=== PATIENT | female | born 1980 | race Caucasian/White ===

== ENCOUNTER 2022-03-19 18:46 | Inpatient (IN) | payer MEDICAID ==
[~2022-03-19] VITALS: Ht 152.4 cm; Wt 75.7 kg
[2022-03-19] MEDS ORDERED: NOREPINEPHRINE 8 MG in DEXT 5% WATER 242 ML IV STA (19:10)
[2022-03-19] MEDS ORDERED: SODIUM CHLORIDE 0.9% 1,000 ML IV ONE (19:15)
[2022-03-19] MEDS ORDERED: ATROPINE SULFATE 0.4MG/ML VIAL IV ONE (19:15)
[2022-03-19] MEDS ORDERED: NOREPINEPHRINE 8MG/250ML PMX 250 ML IV NR (19:15)
[2022-03-19 19:23] LABS: BASOPHILS % 1.3 % (0.0-2.0); EOSINOPHILS % 1.9 % (0.0-5.0); LYMPHOCYTES % 23.5 % (20.0-50.0); MEAN CORPUSCULAR VOLUME 88.3 fL (81.0-99.0); NEUTROPHILS % 69.3 % (40.0-76.0); PLATELET 285 x1000/uL (130-400); RED BLOOD CELL COUNT 1.89 mill/uL (4.2-5.4); RED CELL DISTRIBUTION WIDTH 14.2 % (11.6-14.6)
[2022-03-19 19:30] LABS: HEMATOCRIT. 16.7 % (36.0-48.0); HEMOGLOBIN. 5.5 g/dL (12.0-16.0)
[2022-03-19] MEDS ORDERED: DOPAMINE 800MG/500ML PREMIX 500 ML IV ONE ×2 (19:30→19:45)
[2022-03-19] MEDS ORDERED: CALCIUM CHLORIDE 1GM/10ML SYR IV ONE (19:30)
[2022-03-19 19:32] LABS: CHLORIDE 102 mEq/L (98-107)
[2022-03-19 19:39] LABS: ETHANOL BLOOD < 10 mg/dL
[2022-03-19 20:24] LABS: T4 FREE 1.06 ng/dL (0.76-1.46)
[2022-03-19] MEDS ORDERED: ONDANSETRON HCL 4MG/2ML INJ ONE (20:47)
[2022-03-19] MEDS ORDERED: ONDANSETRON HCL 4MG/2ML INJ IV ONE (21:00)
[2022-03-19] MEDS ORDERED: SODIUM BICARBONATE 8.4% 1 MEQ/ML 50ML SYR IV NR (21:45)
[2022-03-19] MEDS: SODIUM BICARBONATE 150 MEQ in DEXTROSE 5% WATER 1,000 ML IV SCH (23:00)
[2022-03-20] VITALS (45 sets, daily range): BP systolic 39–184; BP diastolic 23–92
[2022-03-20] MEDS ORDERED: CALCIUM GLUCONATE 100MG/ML 10ML VIAL IV ONE (00:15)
[2022-03-20] MEDS ORDERED: DOPAMINE 800MG PREMIX (DOUBLE) 250 ML IV ONE (05:45)
[2022-03-20 07:00] LABS: HEMATOCRIT. 24.6 % (36.0-48.0); HEMOGLOBIN. 8.2 g/dL (12.0-16.0); MEAN CORPUSCULAR HEMOGLOBIN 29.1 pg (28.0-32.0); MEAN CORPUSCULAR VOLUME 87.4 fL (81.0-99.0); MEAN PLATELET VOLUME 9.4 fl (7.4-10.4); PLATELET 295 x1000/uL (130-400); RED BLOOD CELL COUNT 2.81 mill/uL (4.2-5.4); RED CELL DISTRIBUTION WIDTH 15.1 % (11.6-14.6)
[2022-03-20] MEDS: SODIUM BICARBONATE 150 MEQ in DEXTROSE 5% WATER 1,000 ML IV SCH (07:12)
[2022-03-20 07:15] LABS: CHLORIDE 102 mEq/L (98-107)
[2022-03-20 07:21] LABS: CLARITY URINE CLEAR (CLEAR); COLOR URINE YELLOW (YELLOW); KETONES URINE NEGATIVE (NEGATIVE); LEUKOCYTE ESTERASE URINE NEGATIVE (NEGATIVE); NITRITE URINE NEGATIVE (NEGATIVE); OCCULT BLOOD URINE 3+ (NEGATIVE); PROTEIN URINE 4+ (NEGATIVE); SPECIFIC GRAVITY URINE 1.016 (1.005-1.030); UROBILINOGEN URINE 0.2 E.U./dL (0.2-1.0)
[2022-03-20 07:25] LABS: CREATINE KINASE 216 IU/L (26-192)
[2022-03-20 08:10] LABS: *AMPHETAMINES SCREEN URINE NEGATIVE (NEGATIVE); *BARBITURATES SCREEN URINE NEGATIVE (NEGATIVE); *BENZODIAZEPINES SCREEN URINE NEGATIVE (NEGATIVE); *COCAINE SCREEN URINE NEGATIVE (NEGATIVE); CANNABINOID URINE SCREEN NEGATIVE (NEGATIVE); METHADONE URINE SCREEN NEGATIVE (NEGATIVE); OPIATES URINE SCREEN NEGATIVE (NEGATIVE); PHENCYCLIDINE URINE SCREEN NEGATIVE (NEGATIVE)
[2022-03-20] MEDS ORDERED: AMLODIPINE 2.5MG TABLET PO SCH (09:00)
[2022-03-20] MEDS ORDERED: ONDANSETRON HCL 4MG/2ML INJ IV PRN ×2 (09:30→10:30)
[2022-03-20] MEDS ORDERED: DOCUSATE SODIUM 100MG CAPSULE PO PRN (10:30)
[2022-03-20] MEDS ORDERED: HYDROCODONE/ACETAMINOPHEN 5/325MG TABLET PO PRN (10:30)
[2022-03-20] MEDS ORDERED: ACETAMINOPHEN 325MG TABLET PO PRN (10:30)
[2022-03-20] MEDS ORDERED: LORAZEPAM 0.5MG TABLET PO PRN (10:30)
[2022-03-20] MEDS ORDERED: LIDOCAINE HCL 1% 10 MG/ML 10ML VIAL ONE (10:37)
[2022-03-20] MEDS: PANTOPRAZOLE SODIUM 40 MG/VIAL IV SCH (10:40)
[2022-03-20] MEDS ORDERED: NALOXONE HCL 0.4MG/ML VIAL IV PRN (10:45)
[2022-03-20 11:11] LABS: BG BASE EXCESS -8.9 mmol/L (-2.0-2.0); BG CARBOXYHEMOGLOBIN 0.3 % (0.5-1.5); BG FRACTION INSPIRED OXYGEN 40; BG HCO3 ACT 15.3 mmol/L (22.0-26.0); BG METHEMOGLOBIN 0.1 % (0.0-1.5); BG OXYHEMOGLOBIN 89.6 % (94.0-97.0); BG PCO2 26.9 mmHg (35.0-45.0); BG PH 7.372 (7.350-7.450); BG PO2 62.3 mmHg (75.0-100.0); BG SAMPLE SITE RIGHT RADIAL; BG TOTAL HEMOGLOBIN 8.5 g/dL (12.0-18.0); BG VENT MODE NASAL CANNULA
[2022-03-20] MEDS ORDERED: FENTANYL CITRATE/PF 50MCG/ML 2ML VIAL ONE (12:07)
[2022-03-20] MEDS ORDERED: MIDAZOLAM HCL 2 MG/2 ML VIAL ONE (12:07)
[2022-03-20 14:36] LABS: PLATELET ESTIMATE NORMAL
[2022-03-20 15:13] LABS: FERRITIN 61 ng/mL (10-291)
[2022-03-20 15:23] LABS: VITAMIN B12 SERUM 1832 pg/mL (211-911)
[2022-03-20] MEDS ORDERED: FUROSEMIDE 40MG/4ML VIAL IVP NR (15:45)
[2022-03-20 16:03] LABS: PHOSPHORUS 8.5 mg/dL (2.5-4.9)
[2022-03-20] MEDS: GUAIFENESIN/DM 600MG/30MG ER TAB 12HR PO SCH (17:07)
[2022-03-20] MEDS ORDERED: DEXTROSE 50% WATER 50ML SYRINGE IV PRN (17:30)
[2022-03-20] MEDS: INSULIN LISPRO 100 UNITS/ML SUBCUT SCH ×3 (17:40→21:00)
[2022-03-20] MEDS: BLOOD SUGAR DIAGNOSTIC STRIP TEST SCH ×2 (17:41→21:00)
[2022-03-20] MEDS: SEVELAMER CARBONATE 800 MG TABLET PO SCH (19:02)
[2022-03-20 21:46] LABS: BG BASE EXCESS -10.9 mmol/L (-2.0-2.0); BG CARBOXYHEMOGLOBIN 0.3 % (0.5-1.5); BG DEOXYHEMOGLOBIN 19.9 % (0.0-5.0); BG FRACTION INSPIRED OXYGEN 100; BG HCO3 ACT 15.3 mmol/L (22.0-26.0); BG METHEMOGLOBIN 0.5 % (0.0-1.5); BG OXYGEN SATURATION 79.9 % (92.0-98.5); BG OXYHEMOGLOBIN 79.3 % (94.0-97.0); BG PCO2 35.2 mmHg (35.0-45.0); BG PH 7.255 (7.350-7.450); BG PO2 54.2 mmHg (75.0-100.0); BG SAMPLE SITE RIGHT RADIAL; BG TOTAL HEMOGLOBIN 10.6 g/dL (12.0-18.0); BG VENT MODE MASK - NRB
[2022-03-20] MEDS ORDERED: SODIUM BICARBONATE 8.4% 1 MEQ/ML 50ML SYR IV NR ×2 (22:00→23:00)
[2022-03-20 22:54] LABS: BG CARBOXYHEMOGLOBIN 0.3 % (0.5-1.5); BG DEOXYHEMOGLOBIN 11.8 % (0.0-5.0); BG FRACTION INSPIRED OXYGEN 100; BG HCO3 ACT 13.8 mmol/L (22.0-26.0); BG METHEMOGLOBIN 0.3 % (0.0-1.5); BG OXYGEN SATURATION 88.1 % (92.0-98.5); BG OXYHEMOGLOBIN 87.6 % (94.0-97.0); BG PCO2 35.2 mmHg (35.0-45.0); BG PH 7.212 (7.350-7.450); BG PO2 70.6 mmHg (75.0-100.0); BG SAMPLE SITE RH; BG TOTAL HEMOGLOBIN 9.3 g/dL (12.0-18.0); BG VENT MODE MASK - BIPAP
[2022-03-21] VITALS (143 sets, daily range): BP systolic 59–173; BP diastolic 38–106
[2022-03-21 01:18] LABS: BG BASE EXCESS -12.4 mmol/L (-2.0-2.0); BG CARBOXYHEMOGLOBIN 0.3 % (0.5-1.5); BG DEOXYHEMOGLOBIN 15.6 % (0.0-5.0); BG FRACTION INSPIRED OXYGEN 100; BG HCO3 ACT 16.4 mmol/L (22.0-26.0); BG METHEMOGLOBIN 0.1 % (0.0-1.5); BG OXYGEN SATURATION 84.3 % (92.0-98.5); BG PCO2 49.6 mmHg (35.0-45.0); BG PH 7.136 (7.350-7.450); BG SAMPLE SITE LEFT BRACHIAL; BG TOTAL HEMOGLOBIN 10.9 g/dL (12.0-18.0); BG VENT MODE VENT - AC
[2022-03-21] MEDS ORDERED: SODIUM BICARBONATE 8.4% 1 MEQ/ML 50ML SYR IV NR ×2 (01:45→07:15)
[2022-03-21] MEDS: FENTANYL 2500MCG/250ML PMX 250 ML IV PRN (02:31)
[2022-03-21] MEDS: PROPOFOL 10MG/ML 100ML 100 ML IV PRN ×4 (03:01→23:18)
[2022-03-21] MEDS: DOPAMINE 400MG/250ML PREMIX 250 ML IV PRN (05:31)
[2022-03-21] MEDS: GUAIFENESIN/DM 600MG/30MG ER TAB 12HR PO SCH ×2 (06:00→17:39)
[2022-03-21 06:46] LABS: BASOPHILS % 0.2 % (0.0-2.0); HEMATOCRIT. 24.6 % (36.0-48.0); HEMOGLOBIN. 8.3 g/dL (12.0-16.0); LYMPHOCYTES % 7.3 % (20.0-50.0); MEAN CORPUSCULAR HEMOGLOBIN 29.5 pg (28.0-32.0); MEAN CORPUSCULAR VOLUME 87.1 fL (81.0-99.0); MEAN PLATELET VOLUME 9.3 fl (7.4-10.4); NEUTROPHILS % 88.5 % (40.0-76.0); PLATELET 233 x1000/uL (130-400); RED BLOOD CELL COUNT 2.83 mill/uL (4.2-5.4); RED CELL DISTRIBUTION WIDTH 15.5 % (11.6-14.6)
[2022-03-21] MEDS ORDERED: ETOMIDATE 2MG/ML 10ML VIAL IV ONE (06:50)
[2022-03-21] MEDS ORDERED: VECURONIUM BROMIDE 10 MG/VIAL IV ONE (06:50)
[2022-03-21] MEDS ORDERED: ATROPINE SULFATE 1MG/10ML SYR ONE (06:50)
[2022-03-21 06:53] LABS: CHLORIDE 99 mEq/L (98-107)
[2022-03-21 06:54] LABS: INR 1.4; PROTHROMBIN TIME 14.6 sec (9.6-11.0)
[2022-03-21] MEDS: BLOOD SUGAR DIAGNOSTIC STRIP TEST SCH ×4 (06:54→17:38)
[2022-03-21] MEDS ORDERED: VANCOMYCIN 1G PREMIX 200 ML IV SCH (07:00)
[2022-03-21] MEDS ORDERED: PIPERACILLIN/TAZOBACTAM 2.25 G in DEXTROSE 5% WATER 50 ML IV SCH (07:00)
[2022-03-21] MEDS: INSULIN LISPRO 100 UNITS/ML SUBCUT SCH ×3 (07:00→17:38)
[2022-03-21 07:06] LABS: HEPATITIS B SURFACE AB < 3.1 mIU/mL
[2022-03-21 07:08] LABS: CREATINE KINASE 605 IU/L (26-192)
[2022-03-21 07:12] LABS: PHOSPHORUS 9.5 mg/dL (2.5-4.9)
[2022-03-21 07:17] LABS: HEPATITIS B SURFACE ANTIGEN NEGATIVE
[2022-03-21] MEDS ORDERED: HEPARIN 1000 UNITS/ML 10ML ONE (08:25)
[2022-03-21] MEDS ORDERED: LIDOCAINE HCL 1% 10 MG/ML 10ML VIAL ONE (08:25)
[2022-03-21] MEDS: IPRATROPIUM/ALBUTEROL 0.5-3(2.5)MG/3ML NEB HHN PRN ×3 (08:37→16:15)
[2022-03-21] MEDS: SEVELAMER CARBONATE 800 MG TABLET PO SCH ×3 (08:44→17:39)
[2022-03-21] MEDS: PANTOPRAZOLE SODIUM 40 MG/VIAL IV SCH (08:44)
[2022-03-21] MEDS ORDERED: VANCOMYCIN 1250MG in DEXTROSE 5% WATER 250ML IV NR (09:00)
[2022-03-21 09:30] LABS: BG BASE EXCESS -2.4 mmol/L (-2.0-2.0); BG CARBOXYHEMOGLOBIN 0.3 % (0.5-1.5); BG DEOXYHEMOGLOBIN 2.5 % (0.0-5.0); BG FRACTION INSPIRED OXYGEN 100; BG HCO3 ACT 19.8 mmol/L (22.0-26.0); BG METHEMOGLOBIN 0.2 % (0.0-1.5); BG OXYGEN SATURATION 97.5 % (92.0-98.5); BG PCO2 25.2 mmHg (35.0-45.0); BG PH 7.514 (7.350-7.450); BG PO2 115.1 mmHg (75.0-100.0); BG SAMPLE SITE RIGHT RADIAL; BG TOTAL HEMOGLOBIN 8.1 g/dL (12.0-18.0); BG VENT MODE VENT - AC
[2022-03-21] MEDS ORDERED: MANNITOL 12.5G (25%) VIAL 50ML IV NR (10:00)
[2022-03-21] MEDS: PIPERACILLIN/TAZOBACTAM 3.375 G in DEXTROSE 5% WATER 50 ML IV SCH ×2 (10:16→21:43)
[2022-03-21 20:35] LABS: BG BASE EXCESS 2.1 mmol/L (-2.0-2.0); BG CARBOXYHEMOGLOBIN 0.3 % (0.5-1.5); BG DEOXYHEMOGLOBIN 1.3 % (0.0-5.0); BG FRACTION INSPIRED OXYGEN 100; BG HCO3 ACT 26.8 mmol/L (22.0-26.0); BG METHEMOGLOBIN 0.4 % (0.0-1.5); BG OXYGEN SATURATION 98.7 % (92.0-98.5); BG PCO2 42.5 mmHg (35.0-45.0); BG PH 7.418 (7.350-7.450); BG PO2 239.7 mmHg (75.0-100.0); BG SAMPLE SITE LEFT BRACHIAL
[2022-03-22] VITALS (99 sets, daily range): BP systolic 83–142; BP diastolic 43–86
[2022-03-22] MEDS: BLOOD SUGAR DIAGNOSTIC STRIP TEST SCH ×4 (00:02→17:21)
[2022-03-22] MEDS ORDERED: PROPOFOL 10MG/ML 100ML 100 ML IV PRN (03:00)
[2022-03-22] MEDS: DOPAMINE 400MG/250ML PREMIX 250 ML IV PRN (03:02)
[2022-03-22] MEDS: FENTANYL 2500MCG/250ML PMX 250 ML IV PRN ×2 (03:04→14:31)
[2022-03-22] MEDS: GUAIFENESIN/DM 600MG/30MG ER TAB 12HR PO SCH ×2 (05:54→17:21)
[2022-03-22 05:55] LABS: HEMATOCRIT. 22.1 % (36.0-48.0); HEMOGLOBIN. 7.3 g/dL (12.0-16.0); MEAN CORPUSCULAR VOLUME 87.9 fL (81.0-99.0); MEAN PLATELET VOLUME 9.4 fl (7.4-10.4); PLATELET 194 x1000/uL (130-400); RED BLOOD CELL COUNT 2.51 mill/uL (4.2-5.4); RED CELL DISTRIBUTION WIDTH 15.6 % (11.6-14.6)
[2022-03-22] MEDS: PROPOFOL 10MG/ML 100ML 100 ML IV PRN ×3 (05:56→22:21)
[2022-03-22] MEDS: INSULIN LISPRO 100 UNITS/ML SUBCUT SCH ×4 (06:00→17:21)
[2022-03-22 06:11] LABS: PHOSPHORUS 7.7 mg/dL (2.5-4.9)
[2022-03-22] MEDS: PANTOPRAZOLE SODIUM 40 MG/VIAL IV SCH (08:38)
[2022-03-22] MEDS: SEVELAMER CARBONATE 800 MG TABLET PO SCH ×3 (08:38→17:22)
[2022-03-22] MEDS: PIPERACILLIN/TAZOBACTAM 3.375 G in DEXTROSE 5% WATER 50 ML IV SCH ×2 (08:38→21:26)
[2022-03-22] MEDS: MIDODRINE HCL 5MG TABLET PO SCH ×3 (10:03→22:14)
[2022-03-22 11:03] LABS: PLATELET ESTIMATE NORMAL
[2022-03-22 12:05] LABS: BG BASE EXCESS 1.6 mmol/L (-2.0-2.0); BG CARBOXYHEMOGLOBIN 0.3 % (0.5-1.5); BG DEOXYHEMOGLOBIN 3.5 % (0.0-5.0); BG HCO3 ACT 26.7 mmol/L (22.0-26.0); BG METHEMOGLOBIN 0.5 % (0.0-1.5); BG OXYGEN SATURATION 96.5 % (92.0-98.5); BG OXYHEMOGLOBIN 95.7 % (94.0-97.0); BG PCO2 44.8 mmHg (35.0-45.0); BG PH 7.393 (7.350-7.450); BG PO2 98.1 mmHg (75.0-100.0); BG SAMPLE SITE RIGHT BRACHIAL; BG TOTAL HEMOGLOBIN 7.9 g/dL (12.0-18.0); BG VENT MODE VENT - AC
[2022-03-22] MEDS: IPRATROPIUM/ALBUTEROL 0.5-3(2.5)MG/3ML NEB HHN SCH ×2 (13:44→20:35)
[2022-03-22] MEDS ORDERED: VANCOMYCIN 1G PREMIX 200 ML IV NR (21:00)
[2022-03-23] VITALS (91 sets, daily range): BP systolic 94–145; BP diastolic 60–92
[2022-03-23] MEDS: IPRATROPIUM/ALBUTEROL 0.5-3(2.5)MG/3ML NEB HHN SCH ×6 (00:55→20:35)
[2022-03-23] MEDS: PROPOFOL 10MG/ML 100ML 100 ML IV PRN ×4 (05:19→22:51)
[2022-03-23] MEDS: MIDODRINE HCL 5MG TABLET PO SCH ×3 (05:51→21:21)
[2022-03-23] MEDS: GUAIFENESIN/DM 600MG/30MG ER TAB 12HR PO SCH ×2 (05:51→17:19)
[2022-03-23] MEDS: BLOOD SUGAR DIAGNOSTIC STRIP TEST SCH ×4 (05:52→17:20)
[2022-03-23] MEDS: INSULIN LISPRO 100 UNITS/ML SUBCUT SCH ×4 (05:52→17:20)
[2022-03-23] MEDS: FENTANYL 2500MCG/250ML PMX 250 ML IV PRN (05:56)
[2022-03-23 06:08] LABS: HEMATOCRIT. 21.8 % (36.0-48.0); HEMOGLOBIN. 7.3 g/dL (12.0-16.0); MEAN CORPUSCULAR HEMOGLOBIN 29.5 pg (28.0-32.0); MEAN CORPUSCULAR VOLUME 87.8 fL (81.0-99.0); MEAN PLATELET VOLUME 9.4 fl (7.4-10.4); PLATELET 184 x1000/uL (130-400); RED BLOOD CELL COUNT 2.48 mill/uL (4.2-5.4); RED CELL DISTRIBUTION WIDTH 16.1 % (11.6-14.6)
[2022-03-23] MEDS: PANTOPRAZOLE SODIUM 40 MG/VIAL IV SCH (08:15)
[2022-03-23] MEDS: SEVELAMER CARBONATE 800 MG TABLET PO SCH ×3 (08:15→17:20)
[2022-03-23] MEDS: PIPERACILLIN/TAZOBACTAM 3.375 G in DEXTROSE 5% WATER 50 ML IV SCH ×2 (08:25→21:20)
[2022-03-23 09:09] LABS: PLATELET ESTIMATE NORMAL
[2022-03-23] MEDS ORDERED: VANCOMYCIN 1G PREMIX 200 ML IV NR (10:00)
[2022-03-23 10:35] LABS: BG BASE EXCESS -1.3 mmol/L (-2.0-2.0); BG CARBOXYHEMOGLOBIN 0.3 % (0.5-1.5); BG DEOXYHEMOGLOBIN 4.4 % (0.0-5.0); BG FRACTION INSPIRED OXYGEN 40; BG HCO3 ACT 24.1 mmol/L (22.0-26.0); BG METHEMOGLOBIN 0.8 % (0.0-1.5); BG OXYGEN SATURATION 95.6 % (92.0-98.5); BG OXYHEMOGLOBIN 94.5 % (94.0-97.0); BG PCO2 43.2 mmHg (35.0-45.0); BG PH 7.364 (7.350-7.450); BG PO2 90.6 mmHg (75.0-100.0); BG SAMPLE SITE RIGHT RADIAL; BG TOTAL HEMOGLOBIN 8.3 g/dL (12.0-18.0); BG VENT MODE VENT - AC
[2022-03-23 13:06] LABS: ANTI-DNA DOUBLE STRANDED QUANT 2 IU/mL (0-9); ANTI-NUCLEAR ANTIBODIES DIRECT Positive (Negative)
[2022-03-23] MEDS: DOPAMINE 400MG/250ML PREMIX 250 ML IV PRN (22:54)
[2022-03-24] VITALS (92 sets, daily range): BP systolic 83–171; BP diastolic 27–113
[2022-03-24] MEDS: IPRATROPIUM/ALBUTEROL 0.5-3(2.5)MG/3ML NEB HHN SCH ×6 (00:12→20:22)
[2022-03-24] MEDS: FENTANYL 2500MCG/250ML PMX 250 ML IV PRN ×2 (01:21→20:18)
[2022-03-24 05:14] LABS: BASOPHILS % 0.7 % (0.0-2.0); EOSINOPHILS % 5.9 % (0.0-5.0); HEMATOCRIT. 22.1 % (36.0-48.0); HEMOGLOBIN. 7.2 g/dL (12.0-16.0); LYMPHOCYTES % 8.9 % (20.0-50.0); MEAN CORPUSCULAR HEMOGLOBIN 29.2 pg (28.0-32.0); MEAN CORPUSCULAR VOLUME 89.2 fL (81.0-99.0); MONOCYTES % 3.7 % (2.0-8.0); NEUTROPHILS % 80.8 % (40.0-76.0); PLATELET 169 x1000/uL (130-400); RED BLOOD CELL COUNT 2.48 mill/uL (4.2-5.4); RED CELL DISTRIBUTION WIDTH 15.6 % (11.6-14.6)
[2022-03-24 05:24] LABS: PHOSPHORUS 6.5 mg/dL (2.5-4.9)
[2022-03-24] MEDS: PROPOFOL 10MG/ML 100ML 100 ML IV PRN ×3 (05:31→20:15)
[2022-03-24] MEDS: INSULIN LISPRO 100 UNITS/ML SUBCUT SCH ×4 (06:00→17:33)
[2022-03-24] MEDS: GUAIFENESIN/DM 600MG/30MG ER TAB 12HR PO SCH ×2 (06:37→17:34)
[2022-03-24] MEDS: MIDODRINE HCL 5MG TABLET PO SCH ×3 (06:38→21:27)
[2022-03-24] MEDS: BLOOD SUGAR DIAGNOSTIC STRIP TEST SCH ×4 (06:39→17:33)
[2022-03-24] MEDS: FOLIC ACID/VITAMIN B COMP W-C TABLET PO SCH (08:03)
[2022-03-24] MEDS: PANTOPRAZOLE SODIUM 40 MG/VIAL IV SCH (08:04)
[2022-03-24] MEDS: SEVELAMER CARBONATE 800 MG TABLET PO SCH (08:04)
[2022-03-24] MEDS: PIPERACILLIN/TAZOBACTAM 3.375 G in DEXTROSE 5% WATER 50 ML IV SCH ×2 (08:05→21:28)
[2022-03-24 09:06] LABS: ANTI-MYELOPEROXIDASE AB 1.6 units (0.0-0.9); ANTI-PROTEINASE 3 ABS < 0.2 units (0.0-0.9)
[2022-03-24] MEDS: CALCIUM ACETATE 667MG CAPSULE PO SCH ×3 (09:14→17:34)
[2022-03-24 10:58] LABS: BG BASE EXCESS 0.3 mmol/L (-2.0-2.0); BG CARBOXYHEMOGLOBIN 0.3 % (0.5-1.5); BG FRACTION INSPIRED OXYGEN 40; BG HCO3 ACT 24.4 mmol/L (22.0-26.0); BG METHEMOGLOBIN 0.4 % (0.0-1.5); BG OXYHEMOGLOBIN 98.3 % (94.0-97.0); BG PCO2 36.7 mmHg (35.0-45.0); BG PH 7.441 (7.350-7.450); BG PO2 186.6 mmHg (75.0-100.0); BG SAMPLE SITE LEFT RADIAL; BG TOTAL HEMOGLOBIN 6.4 g/dL (12.0-18.0); BG VENT MODE VENT - AC
[2022-03-24 14:29] LABS: BG BASE EXCESS -4.9 mmol/L (-2.0-2.0); BG DEOXYHEMOGLOBIN 1.5 % (0.0-5.0); BG FRACTION INSPIRED OXYGEN 40; BG HCO3 ACT 19.9 mmol/L (22.0-26.0); BG METHEMOGLOBIN 0.3 % (0.0-1.5); BG OXYGEN SATURATION 98.5 % (92.0-98.5); BG OXYHEMOGLOBIN 98.2 % (94.0-97.0); BG PCO2 35.4 mmHg (35.0-45.0); BG PH 7.367 (7.350-7.450); BG PO2 148.4 mmHg (75.0-100.0); BG SAMPLE SITE RIGHT RADIAL; BG TOTAL HEMOGLOBIN 8.8 g/dL (12.0-18.0); BG VENT MODE VENT - CPAP
[2022-03-24] MEDS: ACETAMINOPHEN 325MG TABLET PO PRN (21:29)
[2022-03-25] VITALS (70 sets, daily range): BP systolic 101–145; BP diastolic 50–105
[2022-03-25] MEDS: IPRATROPIUM/ALBUTEROL 0.5-3(2.5)MG/3ML NEB HHN SCH ×6 (00:37→20:24)
[2022-03-25] MEDS: PROPOFOL 10MG/ML 100ML 100 ML IV PRN ×3 (04:20→20:48)
[2022-03-25 05:35] LABS: BASOPHILS % 1.1 % (0.0-2.0); EOSINOPHILS % 6.1 % (0.0-5.0); LYMPHOCYTES % 10.7 % (20.0-50.0); MEAN CORPUSCULAR HEMOGLOBIN 29.4 pg (28.0-32.0); MEAN CORPUSCULAR VOLUME 89.7 fL (81.0-99.0); MEAN PLATELET VOLUME 8.9 fl (7.4-10.4); MONOCYTES % 8.3 % (2.0-8.0); NEUTROPHILS % 73.8 % (40.0-76.0); PLATELET 173 x1000/uL (130-400); RED BLOOD CELL COUNT 2.29 mill/uL (4.2-5.4); RED CELL DISTRIBUTION WIDTH 15.4 % (11.6-14.6)
[2022-03-25 05:51] LABS: HEMOGLOBIN. 6.7 g/dL (12.0-16.0)
[2022-03-25 05:52] LABS: HEMATOCRIT. 20.6 % (36.0-48.0)
[2022-03-25] MEDS: INSULIN LISPRO 100 UNITS/ML SUBCUT SCH ×4 (06:00→17:59)
[2022-03-25] MEDS: BLOOD SUGAR DIAGNOSTIC STRIP TEST SCH ×4 (06:00→17:59)
[2022-03-25] MEDS: MIDODRINE HCL 5MG TABLET PO SCH ×3 (06:40→21:15)
[2022-03-25] MEDS: GUAIFENESIN/DM 600MG/30MG ER TAB 12HR PO SCH ×2 (06:44→18:02)
[2022-03-25] MEDS: PIPERACILLIN/TAZOBACTAM 3.375 G in DEXTROSE 5% WATER 50 ML IV SCH ×2 (08:49→20:52)
[2022-03-25] MEDS: CALCIUM ACETATE 667MG CAPSULE PO SCH ×3 (08:50→18:02)
[2022-03-25] MEDS: FOLIC ACID/VITAMIN B COMP W-C TABLET PO SCH (08:50)
[2022-03-25] MEDS ORDERED: MIDODRINE HCL 5MG TABLET PO SCH (09:00)
[2022-03-25] MEDS: PANTOPRAZOLE SODIUM 40 MG/VIAL IV SCH (09:32)
[2022-03-25] MEDS: LEVOTHYROXINE SODIUM 50MCG TABLET NG SCH (10:10)
[2022-03-25 11:54] LABS: BG BASE EXCESS -1.1 mmol/L (-2.0-2.0); BG CARBOXYHEMOGLOBIN 0.2 % (0.5-1.5); BG DEOXYHEMOGLOBIN 1.7 % (0.0-5.0); BG FRACTION INSPIRED OXYGEN 40; BG HCO3 ACT 23.8 mmol/L (22.0-26.0); BG METHEMOGLOBIN 0.6 % (0.0-1.5); BG OXYGEN SATURATION 98.3 % (92.0-98.5); BG OXYHEMOGLOBIN 97.5 % (94.0-97.0); BG PCO2 40.4 mmHg (35.0-45.0); BG PH 7.388 (7.350-7.450); BG PO2 158.5 mmHg (75.0-100.0); BG SAMPLE SITE RIGHT BRACHIAL; BG TOTAL HEMOGLOBIN 6.8 g/dL (12.0-18.0); BG VENT MODE VENT - AC
[2022-03-25 13:12] LABS: ATYPICAL P-ANCA <1:20 titer (Neg:<1:20); CYTOPLASMIC C-ANCA <1:20 titer (Neg:<1:20)
[2022-03-25] MEDS ORDERED: PROPOFOL 10MG/ML 100ML 100 ML IV PRN (16:30)
[2022-03-25] MEDS: METHYLPREDNISOLONE SOD SUCC 40 MG/ML VIAL IV SCH (18:02)
[2022-03-25] MEDS: FENTANYL 2500MCG/250ML PMX 250 ML IV PRN (20:49)
[2022-03-26] VITALS (56 sets, daily range): BP systolic 94–189; BP diastolic 59–109
[2022-03-26] MEDS: IPRATROPIUM/ALBUTEROL 0.5-3(2.5)MG/3ML NEB HHN SCH ×6 (00:34→20:38)
[2022-03-26] MEDS: BLOOD SUGAR DIAGNOSTIC STRIP TEST SCH ×4 (00:34→17:14)
[2022-03-26] MEDS: PROPOFOL 10MG/ML 100ML 100 ML IV PRN (03:41)
[2022-03-26] MEDS: INSULIN LISPRO 100 UNITS/ML SUBCUT SCH ×4 (05:13→17:14)
[2022-03-26] MEDS: METHYLPREDNISOLONE SOD SUCC 40 MG/ML VIAL IV SCH ×2 (05:14→17:19)
[2022-03-26] MEDS: MIDODRINE HCL 5MG TABLET PO SCH ×3 (05:15→21:21)
[2022-03-26] MEDS: GUAIFENESIN/DM 600MG/30MG ER TAB 12HR PO SCH ×2 (05:15→19:07)
[2022-03-26 05:51] LABS: HEMATOCRIT. 29.8 % (36.0-48.0); HEMOGLOBIN. 9.9 g/dL (12.0-16.0); MEAN CORPUSCULAR HEMOGLOBIN 29.7 pg (28.0-32.0); MEAN CORPUSCULAR VOLUME 89.1 fL (81.0-99.0); MEAN PLATELET VOLUME 8.8 fl (7.4-10.4); PLATELET 194 x1000/uL (130-400); RED BLOOD CELL COUNT 3.34 mill/uL (4.2-5.4); RED CELL DISTRIBUTION WIDTH 14.8 % (11.6-14.6)
[2022-03-26 06:01] LABS: CHLORIDE 101 mEq/L (98-107)
[2022-03-26 07:38] LABS: BG BASE EXCESS -5.4 mmol/L (-2.0-2.0); BG CARBOXYHEMOGLOBIN 0.3 % (0.5-1.5); BG DEOXYHEMOGLOBIN 2.8 % (0.0-5.0); BG FRACTION INSPIRED OXYGEN 40; BG HCO3 ACT 20.7 mmol/L (22.0-26.0); BG METHEMOGLOBIN 0.3 % (0.0-1.5); BG OXYGEN SATURATION 97.2 % (92.0-98.5); BG OXYHEMOGLOBIN 96.6 % (94.0-97.0); BG PCO2 42.9 mmHg (35.0-45.0); BG PH 7.302 (7.350-7.450); BG PO2 113.4 mmHg (75.0-100.0); BG SAMPLE SITE RIGHT RADIAL; BG TOTAL HEMOGLOBIN 10.6 g/dL (12.0-18.0); BG VENT MODE VENT - SIMV
[2022-03-26] MEDS: LEVOTHYROXINE SODIUM 50MCG TABLET NG SCH (07:50)
[2022-03-26] MEDS: CALCIUM ACETATE 667MG CAPSULE PO SCH ×3 (08:20→17:19)
[2022-03-26] MEDS: FOLIC ACID/VITAMIN B COMP W-C TABLET PO SCH (08:20)
[2022-03-26 08:23] LABS: PLATELET ESTIMATE NORMAL
[2022-03-26] MEDS: PANTOPRAZOLE SODIUM 40 MG/VIAL IV SCH (09:05)
[2022-03-26] MEDS ORDERED: CEFAZOLIN SODIUM 1000MG/VIAL ONE (09:51)
[2022-03-26] MEDS ORDERED: GENTAMICIN SULF 40MG/ML 2ML VIAL ONE (09:51)
[2022-03-26] MEDS ORDERED: GENTAMICIN/NS IRRIGATION 500 ML IR ONE (09:51)
[2022-03-26] MEDS ORDERED: LIDOCAINE HCL 1% 10 MG/ML 10ML VIAL ONE (09:51)
[2022-03-26] MEDS ORDERED: PROPOFOL 10MG/ML 100ML 100 ML IV ONE (10:47)
[2022-03-26] MEDS ORDERED: MIDAZOLAM HCL 2 MG/2 ML VIAL ONE (10:54)
[2022-03-26] MEDS ORDERED: IODIXANOL 320MG/ML 100 ML BOTTLE IV ONE (11:40)
[2022-03-26] MEDS ORDERED: HYDROCODONE/ACETAMINOPHEN 5/325MG TABLET PO PRN (13:45)
[2022-03-26] MEDS ORDERED: NALOXONE HCL 0.4MG/ML VIAL IV PRN (14:00)
[2022-03-26] MEDS ORDERED: VANCOMYCIN 750MG PREMIX 150 ML IV NR (18:00)
[2022-03-27] VITALS (29 sets, daily range): BP systolic 119–162; BP diastolic 79–132
[2022-03-27] MEDS: BLOOD SUGAR DIAGNOSTIC STRIP TEST SCH ×4 (00:23→17:27)
[2022-03-27] MEDS: IPRATROPIUM/ALBUTEROL 0.5-3(2.5)MG/3ML NEB HHN SCH ×6 (00:58→20:45)
[2022-03-27] MEDS: MIDODRINE HCL 5MG TABLET PO SCH ×3 (04:56→21:05)
[2022-03-27] MEDS: GUAIFENESIN/DM 600MG/30MG ER TAB 12HR PO SCH ×2 (05:07→17:27)
[2022-03-27] MEDS: INSULIN LISPRO 100 UNITS/ML SUBCUT SCH ×4 (05:31→17:27)
[2022-03-27] MEDS: METHYLPREDNISOLONE SOD SUCC 40 MG/ML VIAL IV SCH ×2 (05:34→17:27)
[2022-03-27 06:01] LABS: BASOPHILS % 0.4 % (0.0-2.0); EOSINOPHILS % 0.1 % (0.0-5.0); HEMATOCRIT. 34.2 % (36.0-48.0); HEMOGLOBIN. 11.2 g/dL (12.0-16.0); LYMPHOCYTES % 10.6 % (20.0-50.0); MEAN CORPUSCULAR HEMOGLOBIN 29.4 pg (28.0-32.0); MEAN CORPUSCULAR VOLUME 89.7 fL (81.0-99.0); MEAN PLATELET VOLUME 8.9 fl (7.4-10.4); MONOCYTES % 10.5 % (2.0-8.0); NEUTROPHILS % 78.4 % (40.0-76.0); PLATELET 273 x1000/uL (130-400); RED BLOOD CELL COUNT 3.81 mill/uL (4.2-5.4)
[2022-03-27] MEDS: PANTOPRAZOLE SODIUM 40 MG/VIAL IV SCH (08:05)
[2022-03-27] MEDS: CALCIUM ACETATE 667MG CAPSULE PO SCH ×3 (08:05→17:31)
[2022-03-27] MEDS: FOLIC ACID/VITAMIN B COMP W-C TABLET PO SCH (08:05)
[2022-03-27] MEDS: LEVOTHYROXINE SODIUM 50MCG TABLET NG SCH (08:05)
[2022-03-27 10:30] LABS: BG BASE EXCESS -7.9 mmol/L (-2.0-2.0); BG CARBOXYHEMOGLOBIN 0.2 % (0.5-1.5); BG DEOXYHEMOGLOBIN 2.5 % (0.0-5.0); BG HCO3 ACT 16.4 mmol/L (22.0-26.0); BG METHEMOGLOBIN 0.9 % (0.0-1.5); BG OXYGEN SATURATION 97.5 % (92.0-98.5); BG OXYHEMOGLOBIN 96.4 % (94.0-97.0); BG PCO2 29.9 mmHg (35.0-45.0); BG PH 7.356 (7.350-7.450); BG PO2 132.4 mmHg (75.0-100.0); BG SAMPLE SITE RIGHT RADIAL; BG TOTAL HEMOGLOBIN 12.1 g/dL (12.0-18.0); BG VENT MODE MASK - CPAP
[2022-03-27] MEDS ORDERED: FAMO20TA8 PO (12:35)
[2022-03-28] VITALS (16 sets, daily range): BP systolic 114–149; BP diastolic 75–99
[2022-03-28] MEDS: BLOOD SUGAR DIAGNOSTIC STRIP TEST SCH ×4 (00:35→18:07)
[2022-03-28] MEDS: IPRATROPIUM/ALBUTEROL 0.5-3(2.5)MG/3ML NEB HHN SCH ×6 (00:48→21:12)
[2022-03-28] MEDS: INSULIN LISPRO 100 UNITS/ML SUBCUT SCH ×4 (05:51→18:00)
[2022-03-28] MEDS: MIDODRINE HCL 5MG TABLET PO SCH ×3 (06:03→21:56)
[2022-03-28] MEDS: GUAIFENESIN/DM 600MG/30MG ER TAB 12HR PO SCH ×2 (06:03→18:25)
[2022-03-28] MEDS: ACETAMINOPHEN 325MG TABLET PO PRN ×2 (06:03→18:06)
[2022-03-28] MEDS: METHYLPREDNISOLONE SOD SUCC 40 MG/ML VIAL IV SCH ×2 (06:03→18:06)
[2022-03-28 06:58] LABS: BASOPHILS % 0.4 % (0.0-2.0); EOSINOPHILS % 0.1 % (0.0-5.0); HEMATOCRIT. 29.7 % (36.0-48.0); HEMOGLOBIN. 9.8 g/dL (12.0-16.0); MEAN CORPUSCULAR HEMOGLOBIN 29.8 pg (28.0-32.0); MEAN CORPUSCULAR VOLUME 90.3 fL (81.0-99.0); MEAN PLATELET VOLUME 8.7 fl (7.4-10.4); MONOCYTES % 10.4 % (2.0-8.0); NEUTROPHILS % 79.1 % (40.0-76.0); PLATELET 246 x1000/uL (130-400); RED BLOOD CELL COUNT 3.28 mill/uL (4.2-5.4); RED CELL DISTRIBUTION WIDTH 14.6 % (11.6-14.6)
[2022-03-28 07:18] LABS: INR 1.1; PROTHROMBIN TIME 11.3 sec (9.6-11.0)
[2022-03-28] MEDS: LEVOTHYROXINE SODIUM 50MCG TABLET NG SCH (08:22)
[2022-03-28] MEDS: PANTOPRAZOLE SODIUM 40 MG/VIAL IV SCH (08:22)
[2022-03-28] MEDS: CALCIUM ACETATE 667MG CAPSULE PO SCH ×3 (08:22→18:06)
[2022-03-28] MEDS: FOLIC ACID/VITAMIN B COMP W-C TABLET PO SCH (08:22)
[2022-03-29] VITALS: BP 133/88
[2022-03-29] MEDS: BLOOD SUGAR DIAGNOSTIC STRIP TEST SCH ×4 (00:30→18:46)
[2022-03-29 04:00] VITALS: BP 135/99
[2022-03-29] MEDS: IPRATROPIUM/ALBUTEROL 0.5-3(2.5)MG/3ML NEB HHN SCH ×5 (04:47→21:10)
[2022-03-29] MEDS: MIDODRINE HCL 5MG TABLET PO SCH ×3 (05:32→22:00)
[2022-03-29] MEDS: GUAIFENESIN/DM 600MG/30MG ER TAB 12HR PO SCH ×2 (05:38→19:07)
[2022-03-29] MEDS: METHYLPREDNISOLONE SOD SUCC 40 MG/ML VIAL IV SCH (05:38)
[2022-03-29] MEDS: INSULIN LISPRO 100 UNITS/ML SUBCUT SCH ×4 (06:00→18:00)
[2022-03-29 06:58] LABS: BASOPHILS % 0.6 % (0.0-2.0); EOSINOPHILS % 0.2 % (0.0-5.0); HEMATOCRIT. 28.7 % (36.0-48.0); HEMOGLOBIN. 9.6 g/dL (12.0-16.0); LYMPHOCYTES % 10.4 % (20.0-50.0); MEAN CORPUSCULAR HEMOGLOBIN 30.2 pg (28.0-32.0); MEAN PLATELET VOLUME 9.1 fl (7.4-10.4); MONOCYTES % 9.3 % (2.0-8.0); NEUTROPHILS % 79.5 % (40.0-76.0); PLATELET 249 x1000/uL (130-400); RED BLOOD CELL COUNT 3.19 mill/uL (4.2-5.4); RED CELL DISTRIBUTION WIDTH 15.1 % (11.6-14.6)
[2022-03-29] MEDS: PANTOPRAZOLE SODIUM 40 MG/VIAL IV SCH (09:25)
[2022-03-29] MEDS: FAMOTIDINE 20MG TABLET PO SCH (09:25)
[2022-03-29] MEDS: LEVOTHYROXINE SODIUM 50MCG TABLET NG SCH (09:25)
[2022-03-29] MEDS: CALCIUM ACETATE 667MG CAPSULE PO SCH ×3 (09:25→19:07)
[2022-03-29] MEDS: FOLIC ACID/VITAMIN B COMP W-C TABLET PO SCH (09:25)
[2022-03-29 11:44] VITALS: BP 140/91
[2022-03-29 12:00] VITALS: BP 125/88
[2022-03-29 16:00] VITALS: BP 169/87
[2022-03-29 20:00] VITALS: BP 144/102
[2022-03-30] VITALS (14 sets, daily range): BP systolic 127–148; BP diastolic 80–103
[2022-03-30] MEDS: IPRATROPIUM/ALBUTEROL 0.5-3(2.5)MG/3ML NEB HHN SCH ×7 (00:39→23:51)
[2022-03-30] MEDS: MIDODRINE HCL 5MG TABLET PO SCH ×3 (06:00→22:00)
[2022-03-30] MEDS: INSULIN LISPRO 100 UNITS/ML SUBCUT SCH ×4 (06:00→18:00)
[2022-03-30] MEDS: GUAIFENESIN/DM 600MG/30MG ER TAB 12HR PO SCH ×2 (06:36→18:10)
[2022-03-30] MEDS: BLOOD SUGAR DIAGNOSTIC STRIP TEST SCH ×4 (06:50→18:04)
[2022-03-30] MEDS ORDERED: LIDOCAINE HCL 1% 10 MG/ML 10ML VIAL ONE (07:27)
[2022-03-30 07:43] LABS: BASOPHILS % 1.2 % (0.0-2.0); EOSINOPHILS % 3.5 % (0.0-5.0); HEMOGLOBIN. 9.1 g/dL (12.0-16.0); MEAN CORPUSCULAR HEMOGLOBIN 30.3 pg (28.0-32.0); MEAN CORPUSCULAR VOLUME 89.8 fL (81.0-99.0); MEAN PLATELET VOLUME 8.7 fl (7.4-10.4); MONOCYTES % 11.4 % (2.0-8.0); NEUTROPHILS % 68.9 % (40.0-76.0); PLATELET 263 x1000/uL (130-400); RED BLOOD CELL COUNT 3.01 mill/uL (4.2-5.4); RED CELL DISTRIBUTION WIDTH 14.6 % (11.6-14.6)
[2022-03-30] MEDS: PANTOPRAZOLE SODIUM 40 MG/VIAL IV SCH (08:32)
[2022-03-30] MEDS: CALCIUM ACETATE 667MG CAPSULE PO SCH ×3 (08:32→18:10)
[2022-03-30] MEDS: LEVOTHYROXINE SODIUM 50MCG TABLET NG SCH (08:32)
[2022-03-30] MEDS: FAMOTIDINE 20MG TABLET PO SCH (08:33)
[2022-03-30] MEDS: FOLIC ACID/VITAMIN B COMP W-C TABLET PO SCH (08:33)
[2022-03-30] MEDS ORDERED: METHYLPREDNISOLONE SOD SUCC 125 MG/2 ML VIAL IV SCH (09:00)
[2022-03-30] MEDS ORDERED: METHYLPREDNISOLONE SOD SUCC 40 MG/ML VIAL IV SCH (09:00)
[2022-03-30] MEDS ORDERED: FENTANYL CITRATE/PF 50MCG/ML 2ML VIAL ONE (09:44)
[2022-03-30] MEDS ORDERED: FENTANYL CITRATE/PF 50MCG/ML 2ML VIAL IV NR (11:00)
[2022-03-30] MEDS ORDERED: TUBERCULIN,PURIF.PROT.DERIV. 5 TU/0.1 ML SYR ID ONE (12:00)
[2022-03-30] MEDS: METHYLPREDNISOLONE SOD SUCC 1,000 MG in DEXT 5% WATER 100 ML IV SCH (13:47)
[2022-03-30 14:18] LABS: HEPATITIS B SURFACE ANTIGEN NEGATIVE
[2022-03-30 15:19] LABS: HEMATOCRIT 29.2 % (36.0-48.0); HEMOGLOBIN 9.7 g/dL (12.0-16.0)
[2022-03-31] VITALS (9 sets, daily range): BP systolic 116–148; BP diastolic 46–96
[2022-03-31] MEDS: BLOOD SUGAR DIAGNOSTIC STRIP TEST SCH ×4 (00:10→18:36)
[2022-03-31] MEDS: INSULIN LISPRO 100 UNITS/ML SUBCUT SCH ×4 (00:10→18:00)
[2022-03-31] MEDS: IPRATROPIUM/ALBUTEROL 0.5-3(2.5)MG/3ML NEB HHN SCH ×5 (04:32→20:13)
[2022-03-31] MEDS: MIDODRINE HCL 5MG TABLET PO SCH ×3 (06:00→21:17)
[2022-03-31] MEDS: GUAIFENESIN/DM 600MG/30MG ER TAB 12HR PO SCH ×2 (06:09→16:32)
[2022-03-31 06:27] LABS: HEMATOCRIT. 27.2 % (36.0-48.0); HEMOGLOBIN. 9.3 g/dL (12.0-16.0); MEAN CORPUSCULAR HEMOGLOBIN 30.3 pg (28.0-32.0); MEAN CORPUSCULAR VOLUME 88.9 fL (81.0-99.0); MEAN PLATELET VOLUME 9.1 fl (7.4-10.4); PLATELET 276 x1000/uL (130-400); RED BLOOD CELL COUNT 3.06 mill/uL (4.2-5.4)
[2022-03-31] MEDS: FAMOTIDINE 20MG TABLET PO SCH (09:46)
[2022-03-31] MEDS: FOLIC ACID/VITAMIN B COMP W-C TABLET PO SCH (09:47)
[2022-03-31] MEDS: CALCIUM ACETATE 667MG CAPSULE PO SCH ×3 (09:47→18:35)
[2022-03-31] MEDS: LEVOTHYROXINE SODIUM 50MCG TABLET NG SCH (09:47)
[2022-03-31] MEDS: PANTOPRAZOLE SODIUM 40 MG/VIAL IV SCH (09:48)
[2022-03-31] MEDS: METHYLPREDNISOLONE SOD SUCC 1,000 MG in DEXT 5% WATER 100 ML IV SCH (16:33)
[2022-03-31] MEDS ORDERED: HYDROCODONE/ACETAMINOPHEN 5/325MG TABLET PO PRN (20:30)
[2022-03-31] MEDS ORDERED: NALOXONE HCL 0.4MG/ML VIAL IV PRN (20:30)
[2022-03-31 22:49] LABS: PLATELET ESTIMATE NORMAL
[2022-04-01] VITALS: BP 138/98
[2022-04-01] MEDS: IPRATROPIUM/ALBUTEROL 0.5-3(2.5)MG/3ML NEB HHN SCH ×6 (01:19→21:07)
[2022-04-01] MEDS: INSULIN LISPRO 100 UNITS/ML SUBCUT SCH ×5 (01:35→17:30)
[2022-04-01 04:00] VITALS: BP 130/83
[2022-04-01] MEDS: MIDODRINE HCL 5MG TABLET PO SCH ×3 (05:15→21:13)
[2022-04-01] MEDS: GUAIFENESIN/DM 600MG/30MG ER TAB 12HR PO SCH ×2 (05:34→17:00)
[2022-04-01] MEDS: BLOOD SUGAR DIAGNOSTIC STRIP TEST SCH ×4 (06:07→17:30)
[2022-04-01 06:10] LABS: HEMATOCRIT. 26.1 % (36.0-48.0); HEMOGLOBIN. 8.8 g/dL (12.0-16.0); MEAN CORPUSCULAR HEMOGLOBIN 29.9 pg (28.0-32.0); MEAN CORPUSCULAR VOLUME 88.8 fL (81.0-99.0); MEAN PLATELET VOLUME 9.2 fl (7.4-10.4); PLATELET 275 x1000/uL (130-400); RED BLOOD CELL COUNT 2.93 mill/uL (4.2-5.4); RED CELL DISTRIBUTION WIDTH 14.9 % (11.6-14.6)
[2022-04-01 07:42] VITALS: BP 130/85
[2022-04-01] MEDS: FAMOTIDINE 20MG TABLET PO SCH (08:14)
[2022-04-01] MEDS: CALCIUM ACETATE 667MG CAPSULE PO SCH ×3 (08:14→17:00)
[2022-04-01] MEDS: PANTOPRAZOLE SODIUM 40 MG/VIAL IV SCH (08:14)
[2022-04-01] MEDS: FOLIC ACID/VITAMIN B COMP W-C TABLET PO SCH (08:14)
[2022-04-01] MEDS: LEVOTHYROXINE SODIUM 50MCG TABLET NG SCH (08:14)
[2022-04-01] MEDS ORDERED: CYCLOPHOSPHAMIDE 25 MG PO SCH (10:00)
[2022-04-01] MEDS: METHYLPREDNISOLONE SOD SUCC 1,000 MG in DEXT 5% WATER 100 ML IV SCH (10:16)
[2022-04-01 11:47] VITALS: BP 144/99
[2022-04-01 15:15] LABS: PLATELET ESTIMATE NORMAL
[2022-04-01 15:32] VITALS: BP 132/87
[2022-04-01 20:00] VITALS: BP 138/99
[2022-04-02] VITALS: BP 135/82
[2022-04-02] MEDS: IPRATROPIUM/ALBUTEROL 0.5-3(2.5)MG/3ML NEB HHN SCH ×5 (00:07→20:35)
[2022-04-02] MEDS: BLOOD SUGAR DIAGNOSTIC STRIP TEST SCH ×5 (00:28→23:47)
[2022-04-02 04:00] VITALS: BP 128/83
[2022-04-02] MEDS: MIDODRINE HCL 5MG TABLET PO SCH (05:27)
[2022-04-02] MEDS: INSULIN LISPRO 100 UNITS/ML SUBCUT SCH ×5 (05:27→23:47)
[2022-04-02] MEDS: GUAIFENESIN/DM 600MG/30MG ER TAB 12HR PO SCH (05:27)
[2022-04-02 06:33] LABS: HEMATOCRIT. 26.3 % (36.0-48.0); HEMOGLOBIN. 8.8 g/dL (12.0-16.0); MEAN CORPUSCULAR HEMOGLOBIN 29.8 pg (28.0-32.0); MEAN CORPUSCULAR VOLUME 88.7 fL (81.0-99.0); MEAN PLATELET VOLUME 9.5 fl (7.4-10.4); PLATELET 280 x1000/uL (130-400); RED BLOOD CELL COUNT 2.96 mill/uL (4.2-5.4); RED CELL DISTRIBUTION WIDTH 14.8 % (11.6-14.6)
[2022-04-02 07:14] LABS: CHLORIDE 98 mEq/L (98-107)
[2022-04-02 08:00] VITALS: BP 130/98
[2022-04-02] MEDS: CALCIUM ACETATE 667MG CAPSULE PO SCH ×3 (09:17→18:39)
[2022-04-02] MEDS: LEVOTHYROXINE SODIUM 50MCG TABLET NG SCH (09:17)
[2022-04-02] MEDS: FOLIC ACID/VITAMIN B COMP W-C TABLET PO SCH (09:18)
[2022-04-02] MEDS: PREDNISONE 20MG TABLET PO SCH (09:18)
[2022-04-02] MEDS: PANTOPRAZOLE SODIUM 40 MG/VIAL IV SCH (09:18)
[2022-04-02 12:00] VITALS: BP 133/89
[2022-04-02] MEDS ORDERED: LIDOCAINE HCL/EPINEPHRINE 1%-EPI 1:100,000 20 ML VIAL ONE (12:37)
[2022-04-02] MEDS ORDERED: LIDOCAINE HCL 1% 10 MG/ML 10ML VIAL ONE (12:37)
[2022-04-02 16:00] VITALS: BP 125/89
[2022-04-02 20:00] VITALS: BP 143/91
[2022-04-03] VITALS: BP 122/75
[2022-04-03] MEDS: IPRATROPIUM/ALBUTEROL 0.5-3(2.5)MG/3ML NEB HHN SCH ×6 (01:03→21:23)
[2022-04-03 04:00] VITALS: BP 118/73
[2022-04-03] MEDS: INSULIN LISPRO 100 UNITS/ML SUBCUT SCH (05:54)
[2022-04-03] MEDS: BLOOD SUGAR DIAGNOSTIC STRIP TEST SCH (05:54)
[2022-04-03] MEDS: LEVOTHYROXINE SODIUM 50MCG TABLET NG SCH (05:59)
[2022-04-03 06:47] LABS: BASOPHILS % 0.1 % (0.0-2.0); EOSINOPHILS % 0.2 % (0.0-5.0); HEMATOCRIT. 27.2 % (36.0-48.0); LYMPHOCYTES % 13.6 % (20.0-50.0); MEAN CORPUSCULAR HEMOGLOBIN 29.7 pg (28.0-32.0); MEAN CORPUSCULAR VOLUME 89.8 fL (81.0-99.0); MEAN PLATELET VOLUME 9.3 fl (7.4-10.4); MONOCYTES % 11.6 % (2.0-8.0); NEUTROPHILS % 74.5 % (40.0-76.0); PLATELET 248 x1000/uL (130-400); RED BLOOD CELL COUNT 3.03 mill/uL (4.2-5.4); RED CELL DISTRIBUTION WIDTH 15.2 % (11.6-14.6)
[2022-04-03 07:47] VITALS: BP 117/75
[2022-04-03 07:56] LABS: PLATELET ESTIMATE NORMAL
[2022-04-03] MEDS: CALCIUM ACETATE 667MG CAPSULE PO SCH ×3 (09:02→18:20)
[2022-04-03] MEDS: FOLIC ACID/VITAMIN B COMP W-C TABLET PO SCH (09:02)
[2022-04-03] MEDS: PANTOPRAZOLE SODIUM 40 MG/VIAL IV SCH (09:02)
[2022-04-03] MEDS: PREDNISONE 20MG TABLET PO SCH (09:02)
[2022-04-03 12:00] VITALS: BP 123/78
[2022-04-03 16:00] VITALS: BP 132/89
[2022-04-03 20:00] VITALS: BP 120/72
[2022-04-04] VITALS: BP 112/67
[2022-04-04] MEDS: IPRATROPIUM/ALBUTEROL 0.5-3(2.5)MG/3ML NEB HHN SCH ×6 (00:54→21:01)
[2022-04-04 04:00] VITALS: BP 125/70
[2022-04-04 06:59] LABS: BASOPHILS % 0.1 % (0.0-2.0); EOSINOPHILS % 0.5 % (0.0-5.0); LYMPHOCYTES % 12.9 % (20.0-50.0); MEAN CORPUSCULAR HEMOGLOBIN 29.7 pg (28.0-32.0); MEAN PLATELET VOLUME 9.7 fl (7.4-10.4); MONOCYTES % 10.4 % (2.0-8.0); NEUTROPHILS % 76.1 % (40.0-76.0); PLATELET 259 x1000/uL (130-400); RED BLOOD CELL COUNT 3.03 mill/uL (4.2-5.4); RED CELL DISTRIBUTION WIDTH 15.2 % (11.6-14.6)
[2022-04-04 08:00] VITALS: BP 113/69
[2022-04-04] MEDS: LEVOTHYROXINE SODIUM 50MCG TABLET NG SCH (09:41)
[2022-04-04] MEDS: PREDNISONE 20MG TABLET PO SCH (09:41)
[2022-04-04] MEDS: CALCIUM ACETATE 667MG CAPSULE PO SCH ×3 (09:41→17:53)
[2022-04-04] MEDS: FOLIC ACID/VITAMIN B COMP W-C TABLET PO SCH (09:41)
[2022-04-04] MEDS: PANTOPRAZOLE SODIUM 40 MG/VIAL IV SCH (09:42)
[2022-04-04 12:00] VITALS: BP 138/91
[2022-04-04 16:00] VITALS: BP 119/68
[2022-04-04 20:23] VITALS: BP 136/89
[2022-04-05 00:14] VITALS: BP 132/80
[2022-04-05] MEDS: IPRATROPIUM/ALBUTEROL 0.5-3(2.5)MG/3ML NEB HHN SCH ×4 (00:37→15:58)
[2022-04-05 04:00] VITALS: BP 110/59
[2022-04-05] MEDS: LEVOTHYROXINE SODIUM 50MCG TABLET NG SCH (06:04)
[2022-04-05 06:47] LABS: BASOPHILS % 0.1 % (0.0-2.0); EOSINOPHILS % 0.4 % (0.0-5.0); HEMOGLOBIN. 9.9 g/dL (12.0-16.0); LYMPHOCYTES % 12.2 % (20.0-50.0); MEAN CORPUSCULAR HEMOGLOBIN 30.6 pg (28.0-32.0); MEAN CORPUSCULAR VOLUME 89.3 fL (81.0-99.0); MEAN PLATELET VOLUME 9.6 fl (7.4-10.4); MONOCYTES % 9.6 % (2.0-8.0); NEUTROPHILS % 77.7 % (40.0-76.0); PLATELET 285 x1000/uL (130-400); RED BLOOD CELL COUNT 3.25 mill/uL (4.2-5.4)
[2022-04-05 08:00] VITALS: BP 124/79
[2022-04-05] MEDS: PANTOPRAZOLE SODIUM 40 MG/VIAL IV SCH (08:32)
[2022-04-05] MEDS: CALCIUM ACETATE 667MG CAPSULE PO SCH ×3 (08:33→18:04)
[2022-04-05] MEDS: PREDNISONE 20MG TABLET PO SCH (08:33)
[2022-04-05] MEDS: FOLIC ACID/VITAMIN B COMP W-C TABLET PO SCH (08:33)
[2022-04-05] MEDS ORDERED: NEPVIT MT (09:33)
[2022-04-05] MEDS ORDERED: CALC667C PO (09:33)
[2022-04-05] MEDS ORDERED: LEVO50TA8 NG (09:33)
[2022-04-05 12:00] VITALS: BP 126/78
[2022-04-05] MEDS ORDERED: METHYLPREDNISOLONE SOD SUCC 40 MG/ML VIAL IV NR (14:45)
[2022-04-05 16:00] VITALS: BP 131/80
[2022-04-05] MEDS ORDERED: PANT40TA51 MT (16:56)
[2022-04-05] MEDS ORDERED: CELL5 MT (16:56)
[2022-04-05] MEDS ORDERED: P20 MT (16:56)
[2022-04-05 17:24] VITALS: BP 131/80
[2022-04-05] MEDS ORDERED: METHYLPREDNISOLONE SOD SUCC 40 MG/ML VIAL IV SCH (20:00)
[2022-04-05] MEDS ORDERED: MYCOPHENOLATE MOFETIL 500MG TABLET PO SCH (21:00)
[2022-04-07 07:10] LABS: ANTI-DNA DOUBLE STRANDED QUANT 2 IU/mL (0-9); RNP ANTIBODY 0.4 AI (0.0-0.9)
== END 2022-04-05 19:05 | disposition home or self-care (01) | DRG 171 ==
LOC: ER 18:46 → 7WST 23:51 → MICUSO 03-20 08:11 → CVICU 03-20 12:04 → 7WST 03-28 14:06
PROVIDERS: ADMIT Internal Medicine; ATTEND Internal Medicine
PROC: 30233N1 Transfusion of Nonautologous Red Blood Cells into Peripheral Vein, Percutaneous Approach (ICD-10-PCS; 2022-03-19)
PROC: 5A1223Z Performance of Cardiac Pacing, Continuous (ICD-10-PCS; 2022-03-20)
PROC: 0BH17EZ Insertion of Endotracheal Airway into Trachea, Via Natural or Artificial Opening (ICD-10-PCS; 2022-03-20)
PROC: 5A1955Z Respiratory Ventilation, Greater than 96 Consecutive Hours (ICD-10-PCS; 2022-03-20)
PROC: 5A09357 Assistance with Respiratory Ventilation, Less than 24 Consecutive Hours, Continuous Positive Airway Pressure (ICD-10-PCS; 2022-03-20)
PROC: 02HV33Z Insertion of Infusion Device into Superior Vena Cava, Percutaneous Approach (ICD-10-PCS; 2022-03-21)
PROC: B548ZZA Ultrasonography of Superior Vena Cava, Guidance (ICD-10-PCS; 2022-03-21)
PROC: 5A1D70Z Performance of Urinary Filtration, Intermittent, Less than 6 Hours Per Day (ICD-10-PCS; 2022-03-21)
PROC: 5A1D70Z Performance of Urinary Filtration, Intermittent, Less than 6 Hours Per Day (ICD-10-PCS; 2022-03-22)
PROC: 5A1D70Z Performance of Urinary Filtration, Intermittent, Less than 6 Hours Per Day (ICD-10-PCS; 2022-03-24)
PROC: 0JH606Z Insertion of Pacemaker, Dual Chamber into Chest Subcutaneous Tissue and Fascia, Open Approach (ICD-10-PCS; principal; 2022-03-26)
PROC: 02H63JZ Insertion of Pacemaker Lead into Right Atrium, Percutaneous Approach (ICD-10-PCS; 2022-03-26)
PROC: 02HK3JZ Insertion of Pacemaker Lead into Right Ventricle, Percutaneous Approach (ICD-10-PCS; 2022-03-26)
PROC: 5A1D70Z Performance of Urinary Filtration, Intermittent, Less than 6 Hours Per Day (ICD-10-PCS; 2022-03-26)
PROC: B517YZZ Fluoroscopy of Left Subclavian Vein using Other Contrast (ICD-10-PCS; 2022-03-26)
PROC: 0TB03ZX Excision of Right Kidney, Percutaneous Approach, Diagnostic (ICD-10-PCS; 2022-03-30)
PROC: 5A1D70Z Performance of Urinary Filtration, Intermittent, Less than 6 Hours Per Day (ICD-10-PCS; 2022-03-31)
PROC: 0JH63XZ Insertion of Tunneled Vascular Access Device into Chest Subcutaneous Tissue and Fascia, Percutaneous Approach (ICD-10-PCS; 2022-04-02)
PROC: 02HV33Z Insertion of Infusion Device into Superior Vena Cava, Percutaneous Approach (ICD-10-PCS; 2022-04-02)
PROC: B5181ZA Fluoroscopy of Superior Vena Cava using Low Osmolar Contrast, Guidance (ICD-10-PCS; 2022-04-02)
PROC: B548ZZA Ultrasonography of Superior Vena Cava, Guidance (ICD-10-PCS; 2022-04-02)
PROC: 02PYX3Z Removal of Infusion Device from Great Vessel, External Approach (ICD-10-PCS; 2022-04-02)
PROC: 5A1D70Z Performance of Urinary Filtration, Intermittent, Less than 6 Hours Per Day (ICD-10-PCS; 2022-04-02)
PROC: 5A1D70Z Performance of Urinary Filtration, Intermittent, Less than 6 Hours Per Day (ICD-10-PCS; 2022-04-05)
DX: I44.2 Atrioventricular block, complete (principal); R57.0 Cardiogenic shock; J96.01 Acute respiratory failure with hypoxia; I50.33 Acute on chronic diastolic (congestive) heart failure; E44.0 Moderate protein-calorie malnutrition; E83.39 Other disorders of phosphorus metabolism; I27.20 Pulmonary hypertension, unspecified; N17.9 Acute kidney failure, unspecified; N18.6 End stage renal disease; E87.2 Acidosis; E83.51 Hypocalcemia; I13.2 Hypertensive heart and chronic kidney disease with heart failure and with stage 5 chronic kidney disease, or end stage renal disease; D64.9 Anemia, unspecified; E11.22 Type 2 diabetes mellitus with diabetic chronic kidney disease; E88.09 Other disorders of plasma-protein metabolism, not elsewhere classified; E03.9 Hypothyroidism, unspecified; E11.65 Type 2 diabetes mellitus with hyperglycemia; E87.5 Hyperkalemia; I08.3 Combined rheumatic disorders of mitral, aortic and tricuspid valves; Z20.822 Contact with and (suspected) exposure to COVID-19; G90.8 Other disorders of autonomic nervous system; M31.8 Other specified necrotizing vasculopathies; N92.0 Excessive and frequent menstruation with regular cycle; I49.5 Sick sinus syndrome; I77.89 Other specified disorders of arteries and arterioles; M62.82 Rhabdomyolysis; Z99.2 Dependence on renal dialysis; Z68.32 Body mass index [BMI] 32.0-32.9, adult
CPT/HCPCS: 31500; 33208; 33210; 36415; 36556; 36558; 36589; 36600; 71045; 75820; 76700; 76937; 76942; 77001; 78227; 80048; 80053; 80202; 80305; 80320; 81003; 82140; 82310; 82330; 82375; 82550; 82570; 82607; 82652; 82728; 82805; 82962; 83036; 83520; 83540; 83550; 83605; 83735; 83970; 84100; 84156; 84439; 84443; 84478; 84484; 85014; 85018; 85025; 85651; 86038; 86140; 86160; 86225; 86235; 86256; 86705; 86706; 86709; 86803; 86850; 86900; 86920; 87070; 87340; 87426; 88305; 88346; 88348; 90585; 93005; 93306; 94002; 94003; 94640; 94660; 97116; 97162; 97166; 97530; 99291; A4565; A9537; C1750; C1752; C1769; C1785; C1893; C1898; C9113; J0461; J0610; J0690; J1265; J1580; J1644; J1815; J1940; J2150; J2250; J2405; J2543; J2704; J2920; J2930; J3010; J3370; J3490; J7030; J7060; J7070; J7512; J8530; L1830; P9016; Q9967; A4315; G0480

== ENCOUNTER 2022-05-20 20:42 | Inpatient (IN) | payer MEDICAID ==
[~2022-05-20] VITALS: Ht 152.4 cm; Wt 51.7 kg
[~2022-05-20 20:42] MED LIST: CALC667C PO; CELL5 MT; LEVO50TA8 NG; NEPVIT MT; P20 MT; PANT40TA51 MT
[2022-05-21] VITALS (10 sets, daily range): BP systolic 92–113; BP diastolic 55–70
[2022-05-21 01:28] LABS: BASOPHILS % 0.2 % (0.0-2.0); LYMPHOCYTES % 13.9 % (20.0-50.0); MEAN CORPUSCULAR HEMOGLOBIN 29.6 pg (28.0-32.0); MEAN PLATELET VOLUME 7.8 fl (7.4-10.4); MONOCYTES % 6.8 % (2.0-8.0); NEUTROPHILS % 79.1 % (40.0-76.0); PLATELET 152 x1000/uL (130-400); RED BLOOD CELL COUNT 2.13 mill/uL (4.2-5.4); RED CELL DISTRIBUTION WIDTH 14.3 % (11.6-14.6)
[2022-05-21 01:44] LABS: HEMATOCRIT. 18.7 % (36.0-48.0); HEMOGLOBIN. 6.3 g/dL (12.0-16.0)
[2022-05-21 01:52] LABS: HCG SCREEN NEGATIVE
[2022-05-21] MEDS ORDERED: MAGNESIUM/ALUMINUM HYDROXIDE/SIMETHICONE 30ML UDC PO PRN (07:15)
[2022-05-21] MEDS ORDERED: DOCUSATE SODIUM 100MG CAPSULE PO PRN (07:15)
[2022-05-21] MEDS ORDERED: GUAIFENESIN 200MG/10ML SUGAR FREE UDC PO PRN (07:15)
[2022-05-21] MEDS ORDERED: ACETAMINOPHEN 325MG TABLET PO PRN (07:15)
[2022-05-21] MEDS ORDERED: TRAMADOL 50MG TABLET PO PRN (07:15)
[2022-05-21] MEDS ORDERED: ONDANSETRON HCL 4MG/2ML INJ IV PRN (07:15)
[2022-05-21] MEDS: MYCOPHENOLATE MOFETIL 500MG TABLET PO SCH ×2 (10:30→17:09)
[2022-05-21] MEDS: PREDNISONE 20MG TABLET PO SCH ×2 (12:42→17:09)
[2022-05-21] MEDS: PANTOPRAZOLE 40MG DR TABLET PO SCH (12:42)
[2022-05-21] MEDS: LEVOTHYROXINE SODIUM 50MCG TABLET NG SCH (12:42)
[2022-05-21] MEDS: FOLIC ACID/VITAMIN B COMP W-C TABLET PO SCH (12:43)
[2022-05-21] MEDS: CALCIUM ACETATE 667MG CAPSULE PO SCH ×2 (12:45→17:09)
[2022-05-21 16:11] LABS: HEPATITIS B SURFACE ANTIGEN NEGATIVE
[2022-05-21 18:29] LABS: BASOPHILS % 0.1 % (0.0-2.0); EOSINOPHILS % 0.1 % (0.0-5.0); HEMATOCRIT. 24.9 % (36.0-48.0); HEMOGLOBIN. 8.5 g/dL (12.0-16.0); LYMPHOCYTES % 14.4 % (20.0-50.0); MEAN CORPUSCULAR HEMOGLOBIN 29.9 pg (28.0-32.0); MEAN CORPUSCULAR VOLUME 87.4 fL (81.0-99.0); MEAN PLATELET VOLUME 7.8 fl (7.4-10.4); NEUTROPHILS % 78.4 % (40.0-76.0); PLATELET 132 x1000/uL (130-400); RED BLOOD CELL COUNT 2.85 mill/uL (4.2-5.4); RED CELL DISTRIBUTION WIDTH 14.2 % (11.6-14.6)
[2022-05-21 18:37] LABS: INR 0.9
[2022-05-22] VITALS: BP 109/64
[2022-05-22 04:00] VITALS: BP 95/62
[2022-05-22] MEDS: LEVOTHYROXINE SODIUM 50MCG TABLET NG SCH (06:28)
[2022-05-22 06:53] LABS: CHLORIDE 103 mEq/L (98-107)
[2022-05-22 06:56] LABS: BASOPHILS % 0.2 % (0.0-2.0); EOSINOPHILS % 0.1 % (0.0-5.0); HEMATOCRIT. 25.3 % (36.0-48.0); HEMOGLOBIN. 8.6 g/dL (12.0-16.0); LYMPHOCYTES % 22.4 % (20.0-50.0); MEAN CORPUSCULAR VOLUME 88.3 fL (81.0-99.0); MEAN PLATELET VOLUME 8.2 fl (7.4-10.4); MONOCYTES % 9.4 % (2.0-8.0); NEUTROPHILS % 67.9 % (40.0-76.0); PLATELET 130 x1000/uL (130-400); RED BLOOD CELL COUNT 2.86 mill/uL (4.2-5.4); RED CELL DISTRIBUTION WIDTH 14.6 % (11.6-14.6)
[2022-05-22 08:00] VITALS: BP 103/63
[2022-05-22] MEDS: PREDNISONE 20MG TABLET PO SCH ×2 (08:40→12:35)
[2022-05-22] MEDS: CALCIUM ACETATE 667MG CAPSULE PO SCH ×2 (08:41→12:35)
[2022-05-22] MEDS: MYCOPHENOLATE MOFETIL 500MG TABLET PO SCH (08:41)
[2022-05-22] MEDS: FOLIC ACID/VITAMIN B COMP W-C TABLET PO SCH (08:41)
[2022-05-22] MEDS: PANTOPRAZOLE 40MG DR TABLET PO SCH (08:41)
[2022-05-22] MEDS ORDERED: LOPERAMIDE HCL 2MG CAPSULE PO PRN (11:00)
[2022-05-22 12:53] VITALS: BP 135/75
== END 2022-05-22 15:06 | disposition home or self-care (01) | DRG 470 ==
LOC: ER 20:42 → 6WST 05-21 04:03 → ENRESERV 05-21 06:40
PROVIDERS: ADMIT Hospitalist; ATTEND Hospitalist
PROC: 30233N1 Transfusion of Nonautologous Red Blood Cells into Peripheral Vein, Percutaneous Approach (ICD-10-PCS; principal; 2022-05-21)
DX: N18.6 End stage renal disease (principal); I27.20 Pulmonary hypertension, unspecified; M31.8 Other specified necrotizing vasculopathies; D63.1 Anemia in chronic kidney disease; E87.1 Hypo-osmolality and hyponatremia; I50.32 Chronic diastolic (congestive) heart failure; I77.89 Other specified disorders of arteries and arterioles; R19.7 Diarrhea, unspecified; E03.9 Hypothyroidism, unspecified; I08.1 Rheumatic disorders of both mitral and tricuspid valves; Z95.0 Presence of cardiac pacemaker; Z99.2 Dependence on renal dialysis; Z79.899 Other long term (current) drug therapy
CPT/HCPCS: 36415; 80048; 80053; 84703; 85025; 85384; 86705; 86709; 86803; 86850; 86900; 86920; 87340; 93005; 99291; J7512; J7517; P9016

== ENCOUNTER 2022-07-07 21:39 | Inpatient (IN) | payer MEDICAID, OTHER ==
[~2022-07-07] VITALS: Ht 152.4 cm; Wt 59.0 kg
[~2022-07-07 21:39] MED LIST changes: -CELL5 MT
[2022-07-08] VITALS (14 sets, daily range): BP systolic 97–127; BP diastolic 52–79
[2022-07-08 02:04] LABS: CHLORIDE 101 mEq/L (98-107)
[2022-07-08 02:08] LABS: BASOPHILS % 1.3 % (0.0-2.0); EOSINOPHILS % 0.3 % (0.0-5.0); MEAN CORPUSCULAR HEMOGLOBIN 31.2 pg (28.0-32.0); MEAN PLATELET VOLUME 7.4 fl (7.4-10.4); MONOCYTES % 10.5 % (2.0-8.0); NEUTROPHILS % 42.9 % (40.0-76.0); PLATELET 349 x1000/uL (130-400); RED CELL DISTRIBUTION WIDTH 16.5 % (11.6-14.6)
[2022-07-08 02:09] LABS: HCG SCREEN NEGATIVE
[2022-07-08 02:18] LABS: HEMOGLOBIN. 6.6 g/dL (12.0-16.0)
[2022-07-08 02:19] LABS: HEMATOCRIT. 19.9 % (36.0-48.0)
[2022-07-08] MEDS ORDERED: DOCUSATE SODIUM 100MG CAPSULE PO PRN (07:15)
[2022-07-08] MEDS ORDERED: GUAIFENESIN 200MG/10ML SUGAR FREE UDC PO PRN (07:15)
[2022-07-08] MEDS ORDERED: MAGNESIUM/ALUMINUM HYDROXIDE/SIMETHICONE 30ML UDC PO PRN (07:15)
[2022-07-08] MEDS ORDERED: NITROGLYCERIN 0.4MG TABLET SL SL PRN (07:15)
[2022-07-08] MEDS ORDERED: ONDANSETRON HCL 4MG/2ML INJ IV PRN (07:15)
[2022-07-08] MEDS ORDERED: ACETAMINOPHEN 325MG TABLET PO PRN ×2 (07:15)
[2022-07-08] MEDS ORDERED: CLONIDINE 0.1MG TABLET PO PRN (07:15)
[2022-07-08] MEDS ORDERED: IPRATROPIUM/ALBUTEROL 0.5-3(2.5)MG/3ML NEB NEB PRN (07:15)
[2022-07-08] MEDS: SEVELAMER CARBONATE 800 MG TABLET PO SCH ×3 (09:00→17:17)
[2022-07-08] MEDS ORDERED: LEVOTHYROXINE SODIUM 50MCG TABLET NG SCH (10:45)
[2022-07-08] MEDS ORDERED: PREDNISONE 20MG TABLET PO SCH (13:00)
[2022-07-08] MEDS: FAMOTIDINE 20MG TABLET PO SCH (14:04)
[2022-07-08] MEDS: PREDNISONE 10MG TABLET PO SCH (14:04)
[2022-07-08] MEDS: FOLIC ACID/VITAMIN B COMP W-C TABLET PO SCH (14:07)
[2022-07-08 18:21] LABS: HEMATOCRIT 28.5 % (36.0-48.0); HEMOGLOBIN 9.9 g/dL (12.0-16.0)
[2022-07-08 18:55] LABS: T4 FREE 1.22 ng/dL (0.76-1.46)
[2022-07-08 19:16] LABS: FOLIC ACID (FOLATE) SERUM > 20.00 ng/mL (>5.38); VITAMIN B12 SERUM > 2000 pg/mL (211-911)
[2022-07-08] MEDS ORDERED: EPOETIN ALFA-EPBX 4,000 UNIT/ML VIAL SUBCUT SCH (21:00)
[2022-07-08] MEDS ORDERED: ZOLPIDEM TARTRATE 5MG TABLET PO PRN (21:00)
[2022-07-09 03:58] VITALS: BP_SYST 112; BP_SYST 121; BP_DIAS 62; BP_DIAS 68
[2022-07-09] MEDS: LEVOTHYROXINE SODIUM 75MCG TABLET PO SCH (06:29)
[2022-07-09 06:58] LABS: BASOPHILS % 0.9 % (0.0-2.0); CHLORIDE 101 mEq/L (98-107); EOSINOPHILS % 0.3 % (0.0-5.0); HEMATOCRIT. 28.2 % (36.0-48.0); HEMOGLOBIN. 9.9 g/dL (12.0-16.0); LYMPHOCYTES % 48.8 % (20.0-50.0); MEAN CORPUSCULAR VOLUME 91.4 fL (81.0-99.0); MONOCYTES % 9.3 % (2.0-8.0); NEUTROPHILS % 40.7 % (40.0-76.0); PLATELET 308 x1000/uL (130-400); RED BLOOD CELL COUNT 3.09 mill/uL (4.2-5.4); RED CELL DISTRIBUTION WIDTH 15.5 % (11.6-14.6)
[2022-07-09 07:05] LABS: PHOSPHORUS 3.9 mg/dL (2.5-4.9)
[2022-07-09 08:11] VITALS: BP 118/70
[2022-07-09] MEDS: FAMOTIDINE 20MG TABLET PO SCH (08:21)
[2022-07-09] MEDS: FOLIC ACID/VITAMIN B COMP W-C TABLET PO SCH (08:21)
[2022-07-09] MEDS: SEVELAMER CARBONATE 800 MG TABLET PO SCH ×3 (08:21→16:07)
[2022-07-09] MEDS: PREDNISONE 10MG TABLET PO SCH (08:21)
[2022-07-09 11:13] VITALS: BP 98/72
[2022-07-09 15:06] VITALS: BP 100/59
[2022-07-09 20:00] VITALS: BP 122/70
[2022-07-09 23:49] VITALS: BP 103/64
[2022-07-10 04:00] VITALS: BP 119/70
[2022-07-10 06:03] LABS: BASOPHILS % 1.2 % (0.0-2.0); EOSINOPHILS % 0.7 % (0.0-5.0); HEMATOCRIT. 29.2 % (36.0-48.0); HEMOGLOBIN. 9.9 g/dL (12.0-16.0); MEAN CORPUSCULAR HEMOGLOBIN 31.3 pg (28.0-32.0); MEAN CORPUSCULAR VOLUME 92.4 fL (81.0-99.0); MEAN PLATELET VOLUME 7.6 fl (7.4-10.4); MONOCYTES % 8.3 % (2.0-8.0); NEUTROPHILS % 39.8 % (40.0-76.0); PLATELET 287 x1000/uL (130-400); RED BLOOD CELL COUNT 3.16 mill/uL (4.2-5.4); RED CELL DISTRIBUTION WIDTH 16.1 % (11.6-14.6)
[2022-07-10] MEDS: LEVOTHYROXINE SODIUM 75MCG TABLET PO SCH (06:05)
[2022-07-10 07:40] VITALS: BP 114/67
[2022-07-10] MEDS: FAMOTIDINE 20MG TABLET PO SCH (08:14)
[2022-07-10] MEDS: FOLIC ACID/VITAMIN B COMP W-C TABLET PO SCH (08:14)
[2022-07-10] MEDS: SEVELAMER CARBONATE 800 MG TABLET PO SCH ×3 (08:14→18:31)
[2022-07-10] MEDS: PREDNISONE 10MG TABLET PO SCH (08:14)
[2022-07-10 12:00] VITALS: BP 123/61
[2022-07-10 14:00] VITALS: BP 113/70
[2022-07-10 15:06] LABS: HEPATITIS B SURFACE ANTIGEN NEGATIVE
[2022-07-10 16:00] VITALS: BP 136/63
== END 2022-07-10 18:50 | disposition home or self-care (01) | DRG 663 ==
LOC: ER 21:39 → 8WST 07-08 05:10 → ENRESERV 07-08 08:26
PROVIDERS: ADMIT Internal Medicine; ATTEND Internal Medicine
PROC: 30233N1 Transfusion of Nonautologous Red Blood Cells into Peripheral Vein, Percutaneous Approach (ICD-10-PCS; principal; 2022-07-08)
PROC: 5A1D70Z Performance of Urinary Filtration, Intermittent, Less than 6 Hours Per Day (ICD-10-PCS; 2022-07-08)
PROC: 5A1D70Z Performance of Urinary Filtration, Intermittent, Less than 6 Hours Per Day (ICD-10-PCS; 2022-07-10)
DX: D64.9 Anemia, unspecified (principal); I44.2 Atrioventricular block, complete; I12.0 Hypertensive chronic kidney disease with stage 5 chronic kidney disease or end stage renal disease; E44.0 Moderate protein-calorie malnutrition; E83.51 Hypocalcemia; N18.6 End stage renal disease; E11.22 Type 2 diabetes mellitus with diabetic chronic kidney disease; I77.82 Antineutrophilic cytoplasmic antibody [ANCA] vasculitis; E03.9 Hypothyroidism, unspecified; Z68.25 Body mass index [BMI] 25.0-25.9, adult; Z95.0 Presence of cardiac pacemaker; Z99.2 Dependence on renal dialysis; Z79.899 Other long term (current) drug therapy
CPT/HCPCS: 36415; 80048; 80053; 82607; 82746; 83540; 83550; 83735; 84100; 84439; 84443; 84703; 85014; 85018; 85025; 85651; 86705; 86709; 86803; 86850; 86900; 86920; 87340; 93970; 99285; J0885; J7512; P9016

== ENCOUNTER 2023-08-01 20:54 | Emergency (ER) | payer MEDICAID ==
[~2023-08-01] VITALS: Ht 152.4 cm; Wt 62.0 kg
[2023-08-01 21:30] VITALS: O2SAT 98
[2023-08-01 23:09] LABS: EOSINOPHILS % 1.6 % (0.0-5.0); HEMATOCRIT. 36.6 % (36.0-48.0); HEMOGLOBIN. 12.1 g/dL (12.0-16.0); LYMPHOCYTES % 32.5 % (20.0-50.0); MEAN CORPUSCULAR HEMOGLOBIN 31.6 pg (28.0-32.0); MEAN CORPUSCULAR HGB CONC 33.2 g/dL (31.0-37.0); MEAN CORPUSCULAR VOLUME 95.1 fL (81.0-99.0); MEAN PLATELET VOLUME 9.3 fl (7.4-10.4); MONOCYTES % 7.7 % (2.0-8.0); NEUTROPHILS % 57.2 % (40.0-76.0); PLATELET 153 x1000/uL (130-400); RED BLOOD CELL COUNT 3.85 mill/uL (4.2-5.4); RED CELL DISTRIBUTION WIDTH 16.8 % (11.6-14.6); WHITE BLOOD COUNT 5.3 x1000/uL (4.5-11.0)
[2023-08-01 23:10] LABS: CHLORIDE 99 mEq/L (98-107); INDEX HEMOLYSI 1 (1-3); INDEX ICTERIC 1 (1-4); INDEX LIPEMIC 1 (1-3); POTASSIUM 4.6 mEq/L (3.5-5.1); SODIUM 135 mEq/L (136-145)
[2023-08-01 23:21] LABS: ALANINE AMINOTRANSFERASE 33 IU/L (13-61); ALBUMIN 3.6 g/dL (3.4-5.0); ASPARTATE AMINOTRANSFERASE 16 IU/L (15-37); CALCIUM 8.8 mg/dL (8.5-10.1); CARBON DIOXIDE 29 mEq/L (21-32); GLUCOSE 106 mg/dL (70-105); PROTEIN TOTAL 7.7 g/dL (6.0-8.3)
[2023-08-02 00:22] LABS: CREATININE 7.7 mg/dL (0.6-1.3); UREA NITROGEN BLOOD 67 mg/dL (7-21)
[2023-08-02 04:19] LABS: B-HCG QUANTITATIVE < 1 mIU/mL (<3); TROPONIN I HIGH SENSITIVITY 26 ng/L (<54)
[2023-08-02 04:22] LABS: CLARITY URINE CLOUDY (CLEAR); COLOR URINE YELLOW (YELLOW); GLUCOSE URINE TRACE (NEGATIVE); KETONES URINE NEGATIVE (NEGATIVE); LEUKOCYTE ESTERASE URINE NEGATIVE (NEGATIVE); NITRITE URINE NEGATIVE (NEGATIVE); OCCULT BLOOD URINE NEGATIVE (NEGATIVE); PH URINE >=9.0 (4.5-8.0); PROTEIN URINE 3+ (NEGATIVE); SPECIFIC GRAVITY URINE 1.012 (1.005-1.030); UROBILINOGEN URINE 0.2 E.U./dL (0.2-1.0)
[2023-08-02 04:25] LABS: YEAST URINE NONE SEEN
[2023-08-02] MEDS ORDERED: SPIRONOLACTONE 50MG TABLET PO SCH (05:45)
[2023-08-02] MEDS ORDERED: FUROSEMIDE 40MG TABLET PO NR (05:45)
[2023-08-02 06:00] VITALS: TEMP 98.3
[2023-08-02 06:51] LABS: SQUAMOUS EPITHELIAL CELL URINE 2+ /lpf (RARE/1+)
[2023-08-02 06:54] LABS: RBC URINE 0-2 /hpf (0-2)
[2023-08-02 06:56] LABS: BACTERIA URINE 1+
[2023-08-02 07:00] VITALS: BP 127/86; PULSE 88; RESP 12
== END 2023-08-02 07:22 | disposition home or self-care (01) ==
LOC: ER 20:54
DX: R18.8 Other ascites (principal); D64.9 Anemia, unspecified; Z95.0 Presence of cardiac pacemaker
CPT/HCPCS: 80053; 81025; 85025; 36415 ×2; 99284; 81003; 84702; 84484; 74176; Z7610

== ENCOUNTER 2024-05-11 10:34 | Inpatient (IN) | payer MEDICAID ==
[~2024-05-11] VITALS: Ht 157.5 cm; Wt 52.2 kg
[2024-05-11] VITALS (7 sets, daily range): BP systolic 106–145; BP diastolic 70–92; PULSE 70–96; RESP 18–20; TEMP 35.61396–36.61404; O2SAT 97–99
[~2024-05-11 10:34] MED LIST changes: +LEVO250T74 MT; -P20 MT
[2024-05-11 11:48] LABS: HEMATOCRIT 38.9 % (36.0-48.0); HEMOGLOBIN 12.4 g/dL (12.0-16.0); MEAN CORPUSCULAR HGB CONC 31.8 g/dL (31.0-37.0); MEAN CORPUSCULAR VOLUME 100.5 fL (81.0-99.0); PLATELET 253 x1000/uL (130-400); RED BLOOD CELL COUNT 3.86 mill/uL (4.2-5.4); RED CELL DISTRIBUTION WIDTH 18.1 % (11.6-14.6); WHITE BLOOD COUNT 4.4 x1000/uL (4.5-11.0)
[2024-05-11 11:54] LABS: POTASSIUM 5.4 mEq/L (3.5-5.1)
[2024-05-11 11:55] LABS: CALCIUM 10.1 mg/dL (8.7-10.4)
[2024-05-11 12:02] LABS: PARTIAL THROMBOPLASTIN TIME 25.1 sec (23.4-31.0); PROTHROMBIN TIME 11.6 sec (9.6-11.0)
[2024-05-11] MEDS: INSULIN REGULAR (HUMULIN R) 1000UNITS/10ML VIAL IV NR (12:15)
[2024-05-11] MEDS: FUROSEMIDE 40MG/4ML VIAL IV NR (12:15)
[2024-05-11] MEDS ORDERED: DEXTROSE 50% WATER 50ML SYRINGE IV NR (12:15)
[2024-05-11] MEDS: ALBUTEROL (0.083%) 2.5MG/3ML NEB HHN SCH (12:30)
[2024-05-11 13:18] LABS: CREATININE 5.5 mg/dL (0.6-1.0)
[2024-05-11] MEDS: SODIUM BICARBONATE 4% 2.4MEQ/5ML VIAL IV ONE (13:31)
[2024-05-11] MEDS ORDERED: LIDOCAINE HCL 1% 10 MG/ML 10ML VIAL ONE (13:32)
[2024-05-11] MEDS ORDERED: ACETAMINOPHEN 650MG SUPP PR PRN (14:30)
[2024-05-11] MEDS ORDERED: IPRATROPIUM/ALBUTEROL 0.5-3(2.5)MG/3ML NEB HHN PRN (14:30)
[2024-05-11] MEDS ORDERED: GUAIFENESIN 200MG/10ML SUGAR FREE UDC PO PRN (14:30)
[2024-05-11] MEDS ORDERED: ACETAMINOPHEN 650MG/20.3ML UDC GT PRN (14:30)
[2024-05-11] MEDS ORDERED: MAGNESIUM/ALUMINUM HYDROXIDE/SIMETHICONE 30ML UDC PO PRN (14:30)
[2024-05-11] MEDS ORDERED: DOCUSATE SODIUM 100MG CAPSULE PO PRN (14:30)
[2024-05-11 15:04] LABS: IRON 59 ug/dL (50-170)
[2024-05-11 15:06] LABS: TOTAL IRON BINDING CAPACITY 251 ug/dl (250-425)
[2024-05-11 15:25] LABS: FOLIC ACID (FOLATE) SERUM > 20.00 ng/mL (>5.38); VITAMIN B12 SERUM 1191 pg/mL (211-911)
[2024-05-11 15:26] LABS: FERRITIN 557 ng/mL (10-291)
[2024-05-11 15:37] LABS: HEPATITIS B SURFACE ANTIGEN NEGATIVE (Negative)
[2024-05-11 15:58] LABS: HEPATITIS A AB IGM NEGATIVE (Negative)
[2024-05-11 15:59] LABS: HEPATITIS B CORE AB IGM NEGATIVE (Negative); HEPATITIS C AB NON REACTIVE (Neg) (Negative)
[2024-05-11] MEDS: CALCIUM ACETATE 667MG CAPSULE PO SCH (17:00)
[2024-05-11 19:50] LABS: BODY FLUID RBC 3400 /cu mm (0-2000); BODY FLUID WBC 250 /cu mm (0-200)
[2024-05-11 19:51] LABS: BODY FLUID MONOCYTES 7 %
[2024-05-12 01:00] VITALS: BP 107/72; PULSE 74; RESP 18; TEMP 36.22512; O2SAT 98
[2024-05-12 04:00] VITALS: BP 108/64; PULSE 71; RESP 18; TEMP 36.3918; O2SAT 99
[2024-05-12] MEDS: LEVOTHYROXINE SODIUM 50MCG TABLET NG SCH (07:09)
[2024-05-12 07:49] LABS: BASOPHILS % 1.7 % (0.0-2.0); EOSINOPHILS % 3.5 % (0.0-5.0); HEMATOCRIT. 39.4 % (36.0-48.0); HEMOGLOBIN. 12.9 g/dL (12.0-16.0); LYMPHOCYTES % 28.6 % (20.0-50.0); MEAN CORPUSCULAR HEMOGLOBIN 32.7 pg (28.0-32.0); MEAN CORPUSCULAR HGB CONC 32.8 g/dL (31.0-37.0); MEAN CORPUSCULAR VOLUME 99.6 fL (81.0-99.0); MEAN PLATELET VOLUME 8.2 fl (7.4-10.4); MONOCYTES % 9.5 % (2.0-8.0); NEUTROPHILS % 56.7 % (40.0-76.0); PLATELET 266 x1000/uL (130-400); RED BLOOD CELL COUNT 3.96 mill/uL (4.2-5.4); RED CELL DISTRIBUTION WIDTH 17.6 % (11.6-14.6)
[2024-05-12 08:00] VITALS: BP 104/59; PULSE 67; RESP 20; TEMP 36.44736; O2SAT 99
[2024-05-12 08:03] LABS: T4 FREE 1.29 ng/dL (0.89-1.76); THYROID STIMULATING HORMONE 3.31 uIU/mL (0.55-4.78)
[2024-05-12] MEDS: PANTOPRAZOLE 40MG DR TABLET PO SCH (09:35)
[2024-05-12] MEDS: FOLIC ACID/VITAMIN B COMP W-C TABLET PO SCH (09:36)
[2024-05-12 09:53] LABS: POTASSIUM 5.1 mEq/L (3.5-5.1)
[2024-05-12 09:55] LABS: CALCIUM 8.8 mg/dL (8.7-10.4)
[2024-05-12 10:01] LABS: CREATININE 5.7 mg/dL (0.6-1.0)
[2024-05-12 12:00] VITALS: BP 103/69; PULSE 69; RESP 20; TEMP 36.44736; O2SAT 99
[2024-05-12 20:00] VITALS: BP 113/59; PULSE 74; RESP 18; TEMP 36.3918; O2SAT 96
[2024-05-13] VITALS (14 sets, daily range): BP systolic 100–143; BP diastolic 55–89; PULSE 61–75; RESP 16–18; TEMP 35.5584–36.61404; O2SAT 98–100
[2024-05-13 06:34] LABS: POTASSIUM 4.9 mEq/L (3.5-5.1)
[2024-05-13 06:36] LABS: CALCIUM 8.8 mg/dL (8.7-10.4)
[2024-05-13 06:51] LABS: CREATININE 7.4 mg/dL (0.6-1.0)
[2024-05-14] MEDS ORDERED: FAMOTIDINE 20MG TABLET PO SCH (09:00)
== END 2024-05-13 16:35 | disposition home or self-care (01) | DRG 425 ==
LOC: ER 10:34 → EDBEDREQ 14:15 → EDBEDREQTM 14:15 → 8WST 21:51
PROVIDERS: ADMIT Internal Medicine; ATTEND Internal Medicine
PROC: 0W9G3ZZ Drainage of Peritoneal Cavity, Percutaneous Approach (ICD-10-PCS; principal; 2024-05-11)
PROC: 5A1D70Z Performance of Urinary Filtration, Intermittent, Less than 6 Hours Per Day (ICD-10-PCS; 2024-05-11)
PROC: 5A1D70Z Performance of Urinary Filtration, Intermittent, Less than 6 Hours Per Day (ICD-10-PCS; 2024-05-13)
DX: E87.5 Hyperkalemia (principal); I13.2 Hypertensive heart and chronic kidney disease with heart failure and with stage 5 chronic kidney disease, or end stage renal disease; E87.20 Acidosis, unspecified; R18.8 Other ascites; N18.6 End stage renal disease; E83.39 Other disorders of phosphorus metabolism; E11.22 Type 2 diabetes mellitus with diabetic chronic kidney disease; I50.20 Unspecified systolic (congestive) heart failure; D72.819 Decreased white blood cell count, unspecified; E03.9 Hypothyroidism, unspecified; E66.9 Obesity, unspecified; Z68.31 Body mass index [BMI] 31.0-31.9, adult; I77.82 Antineutrophilic cytoplasmic antibody [ANCA] vasculitis; D75.89 Other specified diseases of blood and blood-forming organs; I34.0 Nonrheumatic mitral (valve) insufficiency; Z99.2 Dependence on renal dialysis; Z95.0 Presence of cardiac pacemaker
CPT/HCPCS: 36415; 49083; 76705; 80048; 80061; 82607; 82728; 82746; 82962; 83036; 83540; 83550; 84439; 84443; 85025; 85027; 86705; 86709; 87340; 90935; 99291; J1940; J3490

== ENCOUNTER 2025-01-22 22:48 | Inpatient (IN) | payer OTHER ==
[~2025-01-22] VITALS: Ht 152.4 cm; Wt 56.7 kg
[~2025-01-22 22:48] MED LIST changes: +FOLI0.8T53 MT; -LEVO250T74 MT; -NEPVIT MT
[2025-01-22 23:54] LABS: CARBON DIOXIDE 35 mEq/L (21-32); CHLORIDE 89 mEq/L (98-107); POTASSIUM 4.2 mEq/L (3.5-5.1); SODIUM 134 mEq/L (136-145)
[2025-01-22 23:55] LABS: CALCIUM 9.8 mg/dL (8.7-10.4)
[2025-01-22 23:56] LABS: BASOPHILS % 1.4 % (0.0-2.0); DIFFERENTIAL COMMENT 0; EOSINOPHILS % 1.2 % (0.0-5.0); HEMATOCRIT. 29.9 % (36.0-48.0); HEMOGLOBIN. 10.1 g/dL (12.0-16.0); LYMPHOCYTES % 18.2 % (20.0-50.0); MEAN CORPUSCULAR HEMOGLOBIN 33.9 pg (28.0-32.0); MEAN CORPUSCULAR HGB CONC 33.8 g/dL (31.0-37.0); MEAN CORPUSCULAR VOLUME 100.2 fL (81.0-99.0); MEAN PLATELET VOLUME 8.1 fl (7.4-10.4); MONOCYTES % 9.2 % (2.0-8.0); PLATELET 245 x1000/uL (130-400); RED BLOOD CELL COUNT 2.99 mill/uL (4.2-5.4); RED CELL DISTRIBUTION WIDTH 17.7 % (11.6-14.6)
[2025-01-22 23:59] LABS: GLUCOSE 117 mg/dL (70-105)
[2025-01-23] LABS: UREA NITROGEN BLOOD 41 mg/dL (9-23)
[2025-01-23 00:01] LABS: ALANINE AMINOTRANSFERASE 23 IU/L (10-49); ALBUMIN 3.9 g/dL (3.2-4.8); ASPARTATE AMINOTRANSFERASE 31 IU/L (<34)
[2025-01-23 00:02] LABS: BILIRUBIN DIRECT 0.4 mg/dL (<=3.0); PROTEIN TOTAL 7.9 g/dL (6.0-8.3)
[2025-01-23 00:06] LABS: INR 1.3; PROTHROMBIN TIME 13.4 sec (9.6-11.0)
[2025-01-23 00:22] LABS: CREATININE 5.7 mg/dL (0.6-1.0)
[2025-01-23 00:23] LABS: TROPONIN I HIGH SENSITIVITY 43 ng/L (3.0-34)
[2025-01-23 02:45] VITALS: BP 128/91; PULSE 97; RESP 18; TEMP 36; O2SAT 97
[2025-01-23 08:00] VITALS: BP 132/91; PULSE 98; RESP 14; TEMP 36.2; O2SAT 100
[2025-01-23] MEDS ORDERED: SODIUM BICARBONATE 4% 2.4MEQ/5ML VIAL IV ONE (09:23)
[2025-01-23] MEDS ORDERED: LIDOCAINE HCL 1% 10 MG/ML 10ML VIAL ONE (09:23)
[2025-01-23] MEDS ORDERED: ONDANSETRON HCL 4MG/2ML INJ IV PRN (10:00)
[2025-01-23 12:00] VITALS: BP 123/85; PULSE 91; RESP 18; TEMP 36.6; O2SAT 99
[2025-01-23] MEDS: ACETAMINOPHEN 325MG TABLET PO PRN (12:33)
[2025-01-23 13:10] LABS: HEPATITIS B SURFACE ANTIGEN NEGATIVE (Negative)
[2025-01-23 13:31] LABS: HEPATITIS A AB IGM NEGATIVE (Negative); HEPATITIS B CORE AB IGM NEGATIVE (Negative)
[2025-01-23 13:32] LABS: HEPATITIS C AB NON REACTIVE (Neg) (Negative)
[2025-01-23 16:00] VITALS: BP 122/87; PULSE 93; RESP 18; TEMP 36.5; O2SAT 96
[2025-01-23] MEDS ORDERED: TRAMADOL 50MG TABLET PO PRN (16:15)
[2025-01-23 20:00] VITALS: BP 127/86; PULSE 96; RESP 18; TEMP 36.7; O2SAT 98
[2025-01-23] MEDS: ENOXAPARIN 30MG/0.3ML SYR SUBCUT SCH (21:15)
[2025-01-24] VITALS (11 sets, daily range): BP systolic 114–128; BP diastolic 74–88; PULSE 78–96; RESP 16–18; TEMP 35–36.7; O2SAT 95–99
[2025-01-24 06:24] LABS: EOSINOPHILS % 1.8 % (0.0-5.0); HEMATOCRIT. 31.4 % (36.0-48.0); HEMOGLOBIN. 10.7 g/dL (12.0-16.0); LYMPHOCYTES % 24.4 % (20.0-50.0); MEAN CORPUSCULAR HEMOGLOBIN 34.1 pg (28.0-32.0); MEAN CORPUSCULAR VOLUME 100.6 fL (81.0-99.0); MEAN PLATELET VOLUME 8.2 fl (7.4-10.4); MONOCYTES % 9.5 % (2.0-8.0); NEUTROPHILS % 62.3 % (40.0-76.0); PLATELET 215 x1000/uL (130-400); RED BLOOD CELL COUNT 3.12 mill/uL (4.2-5.4); RED CELL DISTRIBUTION WIDTH 17.3 % (11.6-14.6)
[2025-01-24 06:38] LABS: DIFFERENTIAL COMMENT 1
[2025-01-24 06:51] LABS: POTASSIUM 5.3 mEq/L (3.5-5.1)
[2025-01-24 06:52] LABS: CALCIUM 9.5 mg/dL (8.7-10.4)
[2025-01-24 07:07] LABS: CREATININE 7.4 mg/dL (0.6-1.0)
== END 2025-01-24 11:57 | disposition home or self-care (01) ==
LOC: ER 22:48 → 5WST 01-23 00:49
PROVIDERS: ADMIT Internal Medicine; ATTEND Internal Medicine
PROC: 0W9G3ZZ Drainage of Peritoneal Cavity, Percutaneous Approach (ICD-10-PCS; 2025-01-23)
PROC: 5A1D70Z Performance of Urinary Filtration, Intermittent, Less than 6 Hours Per Day (ICD-10-PCS; principal; 2025-01-24)
DX: K74.60 Unspecified cirrhosis of liver (principal); I21.4 Non-ST elevation (NSTEMI) myocardial infarction; I50.23 Acute on chronic systolic (congestive) heart failure; N18.6 End stage renal disease; R18.8 Other ascites; E11.22 Type 2 diabetes mellitus with diabetic chronic kidney disease; D53.9 Nutritional anemia, unspecified; I13.2 Hypertensive heart and chronic kidney disease with heart failure and with stage 5 chronic kidney disease, or end stage renal disease; D72.819 Decreased white blood cell count, unspecified; I77.82 Antineutrophilic cytoplasmic antibody [ANCA] vasculitis; Z95.0 Presence of cardiac pacemaker; K80.20 Calculus of gallbladder without cholecystitis without obstruction; Z99.2 Dependence on renal dialysis; E03.9 Hypothyroidism, unspecified; I25.10 Atherosclerotic heart disease of native coronary artery without angina pectoris
CPT/HCPCS: 36415; 49083; 71045; 76705; 80048; 80076; 84484; 85025; 86705; 86709; 86850; 86900; 87340; 90935; 93005; 99285; J1650; J2003; J3490